=== PATIENT | male | born 1975 | race American Indian/Alaskan Native ===

== ENCOUNTER 2020-08-05 22:17 | Inpatient (IN) | payer OTHER ==
[2020-08-05] MEDS ORDERED: SODIUM CHLORIDE 0.9% 1000 ML 1,000 ML IV ONE ×2 (22:24→22:25)
[2020-08-05] MEDS ORDERED: ASPIRIN 325 MG TAB PO ONE (22:24)
[2020-08-05] MEDS ORDERED: AZITHROMYCIN 500 MG in SODIUM CHLORIDE 0.9% 250ML 250 ML IV ONE (22:25)
[2020-08-05] MEDS ORDERED: dexAMETHasone 4 MG/ML VIAL IV ONE (22:25)
[2020-08-05] MEDS ORDERED: cefTRIAXone/NS 2 GM/100 ML 2 GM/100 ML BAG IV ONE (22:25)
--- NOTE | 2020-08-05 22:29 | Emergency Department Report ---
ED Chest Pain HPI - General Chief Complaint: Chest Pain Stated Complaint: DIFFICULTY IN BREATHING PUI?: Yes Time Seen by Provider: 08/05/20 22:22 Source: patient, EMS Mode of arrival: Stretcher Limitations: No Limitations - History of Present Illness Initial Comments: Patient is a 45-year-old male that presents emergency room with complaints of chest pain and shortness of breath. Patient states he was diagnosed with Covid 2 days ago. Patient states his chest pain or shortness of breath started 2 days ago and is worsening. Patient also complains of fever, cough, fatigue. Patient states his chest pain is a 6 out of 10. Patient states his chest pain and shortness of breath are worse with deep breath, exertion and movement. Patient states that his chest pain or shortness of breath are better with rest. Patient states that his fever responds well to Tylenol. Patient brought in by EMS. Report received from EMS. EMS states the patient was 90% placed on a nonrebreather and is 99%. MD Complaint: chest pain -: Sudden - Related Data Home Medications Medication Instructions Recorded Confirmed Last Taken metFORMIN [Glucophage] 500 mg PO QDAY 08/06/20 08/06/20 1 Day Ago ~08/05/20 Allergies Allergy/AdvReac Type Severity Reaction Status Date / Time bismuth subsalicylate Allergy Headache Verified 08/06/20 03:00 [From Pepto-Bismol] Heart Score - HEART Score History: Slightly suspicious EKG: Normal Age: < 45 Risk factors: No known risk factors Troponin: < normal limit HEART Score: 0 ED Review of Systems ROS: Stated complaint: DIFFICULTY IN BREATHING Other details as noted in HPI Constitutional: chills, fever, weakness Eyes: denies: eye pain, eye discharge, vision change ENT: denies: ear pain, throat pain Respiratory: cough, shortness of breath. denies: wheezing Cardiovascular: chest pain. denies: palpitations Endocrine: no symptoms reported Gastrointestinal: denies: abdominal pain, nausea, diarrhea Genitourinary: denies: urgency, dysuria Musculoskeletal: denies: back pain, joint swelling, arthralgia Skin: denies: rash, lesions Neurological: denies: headache, weakness, paresthesias Psychiatric: denies: anxiety, depression Hematological/Lymphatic: denies: easy bleeding, easy bruising ED Past Medical Hx - Past Medical History Previous Medical History?: No - Surgical History Past Surgical History?: No - Family History Family history: no significant - Social History Smoking Status: Never Smoker Substance Use Type: None - Medications Home Medications: Home Medications Medication Instructions Recorded Confirmed Last Taken Type metFORMIN [Glucophage] 500 mg PO QDAY 08/06/20 08/06/20 1 Day Ago History ~08/05/20 ED Physical Exam - General General appearance: alert, in no apparent distress - Head Head exam: Present: atraumatic, normocephalic - Eye Eye exam: Present: normal appearance - ENT ENT exam: Present: mucous membranes moist - Neck Neck exam: Present: normal inspection - Respiratory Respiratory exam: Present: normal lung sounds bilaterally. Absent: respiratory distress - Cardiovascular Cardiovascular Exam: Present: regular rate, normal rhythm. Absent: systolic murmur, diastolic murmur, rubs, gallop - GI/Abdominal GI/Abdominal exam: Present: soft, normal bowel sounds - Rectal Rectal exam: Present: deferred - Extremities Exam Extremities exam: Present: normal inspection - Back Exam Back exam: Present: normal inspection - Neurological Exam Neurological exam: Present: alert, oriented X3 - Psychiatric Psychiatric exam: Present: normal affect, normal mood - Skin Skin exam: Present: warm, dry, intact, normal color. Absent: rash ED Course Vital Signs 08/05/20 08/05/20 08/05/20 22:28 22:30 22:45 Temperature 99.0 F Pulse Rate 117 H 117 H 112 H Respiratory 50 H 24 31 H Rate Blood Pressure 152/78 129/68 Blood Pressure [Right] O2 Sat by Pulse 91 100 100 Oximetry 08/05/20 08/05/20 08/05/20 23:00 23:15 23:30 Temperature Pulse Rate 110 H 108 H 107 H Respiratory 29 H 29 H 37 H Rate Blood Pressure 129/68 124/65 124/65 Blood Pressure [Right] O2 Sat by Pulse 97 99 98 Oximetry 08/05/20 08/05/20 08/06/20 23:33 23:45 00:00 Temperature Pulse Rate 109 H 106 H 108 H Respiratory 31 H 39 H 38 H Rate Blood Pressure 139/67 139/67 Blood Pressure 132/73 [Right] O2 Sat by Pulse 98 98 99 Oximetry 08/06/20 08/06/20 08/06/20 00:16 00:30 00:46 Temperature Pulse Rate 109 H 105 H 111 H Respiratory 32 H 27 H 32 H Rate Blood Pressure 139/67 139/67 139/67 Blood Pressure [Right] O2 Sat by Pulse 98 99 97 Oximetry 08/06/20 08/06/20 08/06/20 01:00 01:16 01:30 Temperature Pulse Rate 107 H 105 H 102 H Respiratory 38 H 31 H 35 H Rate Blood Pressure 139/67 139/67 139/67 Blood Pressure [Right] O2 Sat by Pulse 97 94 95 Oximetry 08/06/20 08/06/20 08/06/20 01:46 02:00 02:16 Temperature Pulse Rate 102 H 103 H 107 H Respiratory 31 H 33 H 33 H Rate Blood Pressure 139/67 139/67 139/67 Blood Pressure [Right] O2 Sat by Pulse 96 97 94 Oximetry 08/06/20 08/06/20 08/06/20 03:00 03:16 03:30 Temperature Pulse Rate 102 H 101 H 103 H Respiratory 34 H 35 H 33 H Rate Blood Pressure Blood Pressure [Right] O2 Sat by Pulse 96 95 95 Oximetry - Reevaluation(s) Reevaluation #1: Initial evaluation done. Patient is on a nonrebreather. Patient will be converted to a nasal cannula. 08/05/20 22:22 Reevaluation #2: Patient's oxygen saturation is stable. Patient is on 5 L via nasal cannula. Patient has received fluids and antibiotics. 08/05/20 2301 Reevaluation #3: I discussed all results with patient. I discussed plan of care with patient. Patient agrees with plan of care and admission. Patient to be admitted to the hospitalist service. 08/06/20 02:13 - Consultations Consultation #1: Hospitalist consulted for admission. Hospitalist to admit patient. 08/06/20 02:13 Consultation #2: Infectious disease consult placed. 08/06/20 02:13 PATRIZIA score - Patrizia Score Age > 65: (0) No Aspirin use within the Past 7 Days: (0) No 3 or more CAD Risk Factors: (0) No 2 or more Angina events in past 24 hrs: (0) No Known CAD with more than 50% Stenosis: (0) No Elevated Cardiac Markers: (0) No ST Deviation Greater than 0.5mm: (0) No PATRIZIA Score: 0 ED Medical Decision Making - Lab Data Result diagrams: 08/05/20 23:15 08/06/20 00:36 - EKG Data -: EKG Interpreted by Me EKG shows normal: sinus rhythm, axis, intervals, QRS complexes, ST-T waves Rate: tachycardia - Radiology Data Radiology results: report reviewed, image reviewed interpreted by me: Chest x-ray: Bilateral pneumonia, no pneumothorax, no foreign body, no osseous findings, - Medical Decision Making Patient is a 45-year-old male that presents emergency room with complaints of chest pain and shortness of breath. Patient was diagnosed with Covid 2 to 3 days ago. Patient symptoms have been worsening. Patient brought in by EMS and found to have hypoxia. Patient placed on oxygen. Patient required oxygen the entire time in ER. Patient's clinical findings with respiratory failure. Patient had labs were done which were essentially unremarkable except for elevated Covid markers. Patient given antibiotics and fluids early and the ER stay. Patient also given Decadron. Infectious disease consulted. Patient admitted to the hospitalist service for further evaluation and treatment. Patient also admitted to rule out ACS. - Differential Diagnosis Covid, pneumonia, shortness of breath, hypoxia, respiratory failure Critical Care Time: Yes Critical care time in (mins) excluding proc time.: 35 Critical care attestation.: If time is entered above; I have spent that time in minutes in the direct care of this critically ill patient, excluding procedure time. Critical Care Time: 35 minutes ED Disposition Clinical Impression: COVID-19, SOB (shortness of breath), Lactic acid acidosis Chest pain Qualifiers: Chest pain type: unspecified Qualified Code(s): R07.9 - Chest pain, unspecified Respiratory failure Qualifiers: Chronicity: acute Respiratory failure complication: hypoxia Qualified Code(s): J96.01 - Acute respiratory failure with hypoxia Pneumonia Qualifiers: Pneumonia type: due to unspecified organism Laterality: bilateral Lung location: unspecified part of lung Qualified Code(s): J18.9 - Pneumonia, unspecified organism Fever Qualifiers: Fever type: unspecified Qualified Code(s): R50.9 - Fever, unspecified Sepsis Qualifiers: Sepsis type: sepsis due to unspecified organism Sepsis acute organ dysfunction status: without acute organ dysfunction Qualified Code(s): A41.9 - Sepsis, unspecified organism Disposition: OP ADMIT IP TO THIS HOSP Is pt being admited?: Yes Does the pt Need Aspirin: No Condition: Critical Time of Disposition: 02:13
--- NOTE | 2020-08-05 23:05 | XRay Report ---
CHEST 1 VIEW INDICATION: sob. COMPARISON: None FINDINGS: SUPPORT DEVICES: None. HEART: Within normal limits. LUNGS/PLEURA: Patchy bibasilar airspace disease with no appreciable effusion. ADDITIONAL FINDINGS: None. IMPRESSION: 1. Pulmonary findings as above. Signer Name: Anthony Gordon MD Signed: 08/05/2020 11:00 PM Workstation Name: [id number]
[2020-08-06 00:19] LABS: Alanine Aminotransferase 73 units/L (7-56); Albumin 4.3 g/dL (3.9-5); BUN/Creatinine Ratio 13; Blood Urea Nitrogen 15 mg/dL (9-20); Calcium 8.9 mg/dL (8.4-10.2); Hemolysis Index 52
[2020-08-06 00:23] LABS: Hematocrit 41.6 % (35.5-45.6); Hemoglobin 13.6 gm/dl (11.8-15.2); Mean Corpuscular HGB Conc 33 % (32-34); Mean Corpuscular Volume 87 fl (84-94); Platelet Count 291 K/mm3 (140-440); Red Blood Count 4.78 M/mm3 (3.65-5.03); Red Cell Distribution Width 14.9 % (13.2-15.2)
[2020-08-06] MEDS ORDERED: SODIUM CHLORIDE 0.9% 1000 ML 1,000 ML IV ONE (00:39)
[2020-08-06] MEDS ORDERED: ONDANSETRON 4 MG/2 ML INJ IV PRN (03:10)
[2020-08-06] MEDS ORDERED: MORPHINE 2 MG/1 ML INJ IV PRN (03:12)
[2020-08-06] MEDS ORDERED: SODIUM CHLORIDE 0.9% 1000 ML 1,000 ML IV SCH (03:15)
[2020-08-06 03:50] LABS: C-Reactive Protein 32.8 mg/dL (0.00-1.30)
[2020-08-06 04:34] LABS: Band Neutrophils # (Manual) 0.5 K/mm3; Basophils % (Manual) 0 % (0.0-1.8); Eosinophils % (Manual) 0 % (0.0-4.3); Total Cells Counted 100
[2020-08-06 04:35] LABS: Platelet Estimate Consistent w Auto
[2020-08-06] MEDS: NITROGLYCERIN 2% OINT 1 GM TP SCH ×4 (06:35→17:12)
--- NOTE | 2020-08-06 07:21 | History and Physical Report ---
History of Present Illness Date of examination: 08/06/20 Date of admission: 08/06/20 02:50 Chief complaint: CHEST PAIN FEVER, COUGH, History of present illness: 45 year old male with history of pressure like chest pain that started 2 days prior to presentation and was associated with cough, fever and shortness of breath. Chest pain is worse with exertion and better with rest. patient tested positive to COVID -19 2 days ago Past History Past Medical History: diabetes, other (BACK PAIN) Past Surgical History: No surgical history Social history: no significant social history Family history: no significant family history Medications and Allergies Allergies Allergy/AdvReac Type Severity Reaction Status Date / Time bismuth subsalicylate Allergy Headache Verified 08/06/20 03:00 [From Pepto-Bismol] Home Medications Medication Instructions Recorded Confirmed Last Taken Type metFORMIN [Glucophage] 500 mg PO QDAY 08/06/20 08/06/20 1 Day Ago History ~08/05/20 Active Meds: Active Medications Acetaminophen (Tylenol) 650 mg PO Q4H PRN PRN Reason: Fever >101 Aspirin (Aspirin) 325 mg PO QDAY [facility] Dexamethasone (Decadron) 6 mg IV DAILY [facility] Heparin Sodium (Porcine) (Heparin) 5,000 unit SUB-Q Q12HR [facility] Azithromycin 500 mg/ Sodium (Chloride) 250 mls @ 250 mls/hr IV Q24HR [facility]; Protocol Ceftriaxone Sodium (Rocephin/Ns 2 Gm/100 Ml) 2 gm in 100 mls @ 200 mls/hr IV Q24HR [facility]; Protocol Sodium Chloride (Nacl 0.9% 1000 Ml) 1,000 mls @ 125 mls/hr IV DIRECT [facility] Morphine Sulfate (Morphine) 2 mg IV Q4H PRN PRN Reason: Pain, Moderate (4-6) Nitroglycerin (Nitro-Bid 2%) 0.5 inch TP QIDNTG [facility]; Protocol Last Admin: 08/06/20 06:35 Dose: 0.5 inch Documented by: Ondansetron HCl (Zofran) 4 mg IV Q8H PRN PRN Reason: Nausea And Vomiting Review of Systems Constitutional: fever, weakness, no weight loss, no weight gain, no chills, no sweats, no night sweats, no fatigue, no malaise, no lethargy, no daytime sleepiness Eyes: bilateral: other (NO BILATERAL EYE SYMPTOM) Ears, nose, mouth and throat: no ear pain Cardiovascular: chest pain, shortness of breath, no palpitations, no rapid/irregular heart beat, no syncope Respiratory: cough, shortness of breath, no hemoptysis, no congestion Gastrointestinal: no abdominal pain, no nausea, no vomiting, no diarrhea, no constipation, no change in bowel habits, no hematemesis, no hematochezia, no loss of appetite, no early satiety, no heartburn Genitourinary Male: no hematuria, no flank pain, no discharge, no urinary frequency, no urinary hesitancy, no nocturia, no incontinence, no impotence Rectal: no pain Musculoskeletal: no neck stiffness, no neck pain, no shooting arm pain, no arm numbness/tingling, no low back pain, no shooting leg pain, no leg numbness/tingling, no muscle weakness, no muscle cramps Integumentary: rash Neurological: weakness, no parathesias, no numbness, no tingling, no seizures, no syncope, no tremors, no vertigo, no headaches Psychiatric: no anxiety, no insomnia, no hypersomnia, no change in appetite, no depression Endocrine: no polyphagia, no polydipsia, no polyuria, no nocturia, no excessive sweating, no flushing Exam - Constitutional Vitals: Temp Pulse Resp BP Pulse Ox 99.0 F 106 H 33 H 140/81 95 08/05/20 22:30 08/06/20 06:35 08/06/20 03:30 08/06/20 06:35 08/06/20 03:30 General appearance: Present: mild distress - EENT Eyes: Present: PERRL ENT: hearing intact, clear oral mucosa, dentition normal - Neck Neck: Present: supple, normal ROM - Respiratory Respiratory effort: normal - Cardiovascular Rhythm: irregularly irregular Heart Sounds: Present: S1 & S2. Absent: gallop, systolic murmur, diastolic murmur - Extremities Extremities: no ischemia, No edema Peripheral Pulses: within normal limits - Abdominal General gastrointestinal: Present: soft, non-tender, non-distended. Absent: tender, distended, rigid, mass Male genitourinary: Present: deferred - Rectal Rectal Exam: deferred - Integumentary Integumentary: Present: clear, warm, dry - Musculoskeletal Musculoskeletal: strength equal bilaterally - Psychiatric Psychiatric: appropriate mood/affect HEART Score - HEART Score EKG: Normal Age: < 45 Risk factors: No known risk factors Troponin: Troponin T < 0.010 ng/mL (0.00-0.029) 08/06/20 05:49 Troponin: < normal limit - Critical Actions Critical Actions: 0-3 pts:0.9-1.7%risk of adverse cardiac event.Candidate for discharge Results - Labs CBC & Chem 7: 08/05/20 23:15 08/06/20 00:36 Labs: Laboratory Last Values WBC 13.6 K/mm3 (4.5-11.0) H 08/05/20 23:15 RBC 4.78 M/mm3 (3.65-5.03) 08/05/20 23:15 Hgb 13.6 gm/dl (11.8-15.2) 08/05/20 23:15 Hct 41.6 % (35.5-45.6) 08/05/20 23:15 MCV 87 fl (84-94) 08/05/20 23:15 MCH 29 pg (28-32) 08/05/20 23:15 MCHC 33 % (32-34) 08/05/20 23:15 RDW 14.9 % (13.2-15.2) 08/05/20 23:15 Plt Count 291 K/mm3 (140-440) 08/05/20 23:15 Add Manual Diff Complete 08/05/20 23:15 Total Counted 100 08/05/20 23:15 Seg Neutrophils % Sr. Payroll Manager 08/05/20 23:15 Seg Neuts % (Manual) 90.0 % (40.0-70.0) H 08/05/20 23:15 Band Neutrophils % 4.0 % 08/05/20 23:15 Lymphocytes % (Manual) 5.0 % (13.4-35.0) L 08/05/20 23:15 Reactive Lymphs % (Man) 0 % 08/05/20 23:15 Monocytes % (Manual) 1.0 % (0.0-7.3) 08/05/20 23:15 Eosinophils % (Manual) 0 % (0.0-4.3) 08/05/20 23:15 Basophils % (Manual) 0 % (0.0-1.8) 08/05/20 23:15 Metamyelocytes % 0 % 08/05/20 23:15 Myelocytes % 0 % 08/05/20 23:15 Promyelocytes % 0 % 08/05/20 23:15 Blast Cells % 0 % 08/05/20 23:15 Nucleated RBC % Not Reportable 08/05/20 23:15 Seg Neutrophils # Man 12.2 K/mm3 (1.8-7.7) H 08/05/20 23:15 Band Neutrophils # 0.5 K/mm3 08/05/20 23:15 Lymphocytes # (Manual) 0.7 K/mm3 (1.2-5.4) L 08/05/20 23:15 Abs React Lymphs (Man) 0.0 K/mm3 08/05/20 23:15 Monocytes # (Manual) 0.1 K/mm3 (0.0-0.8) 08/05/20 23:15 Eosinophils # (Manual) 0.0 K/mm3 (0.0-0.4) 08/05/20 23:15 Basophils # (Manual) 0.0 K/mm3 (0.0-0.1) 08/05/20 23:15 Metamyelocytes # 0.0 K/mm3 08/05/20 23:15 Myelocytes # 0.0 K/mm3 08/05/20 23:15 Promyelocytes # 0.0 K/mm3 08/05/20 23:15 Blast Cells # 0.0 K/mm3 08/05/20 23:15 WBC Morphology Not Reportable 08/05/20 23:15 Hypersegmented Neuts Not Reportable 08/05/20 23:15 Hyposegmented Neuts Not Reportable 08/05/20 23:15 Hypogranular Neuts Not Reportable 08/05/20 23:15 Smudge Cells Not Reportable 08/05/20 23:15 Toxic Granulation Not Reportable 08/05/20 23:15 Toxic Vacuolation Not Reportable 08/05/20 23:15 Dohle Bodies Not Reportable 08/05/20 23:15 Pelger-Huet Anomaly Not Reportable 08/05/20 23:15 Tom Rods Not Reportable 08/05/20 23:15 Platelet Estimate Consistent w auto 08/05/20 23:15 Clumped Platelets Not Reportable 08/05/20 23:15 Plt Clumps, EDTA Not Reportable 08/05/20 23:15 Large Platelets Not Reportable 08/05/20 23:15 Giant Platelets Not Reportable 08/05/20 23:15 Platelet Satelliting Not Reportable 08/05/20 23:15 Plt Morphology Comment Not Reportable 08/05/20 23:15 RBC Morphology Not Reportable 08/05/20 23:15 Dimorphic RBCs Not Reportable 08/05/20 23:15 Polychromasia Not Reportable 08/05/20 23:15 Hypochromasia Not Reportable 08/05/20 23:15 Poikilocytosis Not Reportable 08/05/20 23:15 Anisocytosis Not Reportable 08/05/20 23:15 Microcytosis Not Reportable 08/05/20 23:15 Macrocytosis Not Reportable 08/05/20 23:15 Spherocytes Not Reportable 08/05/20 23:15 Pappenheimer Bodies Not Reportable 08/05/20 23:15 Sickle Cells Not Reportable 08/05/20 23:15 Target Cells Not Reportable 08/05/20 23:15 Tear Drop Cells Not Reportable 08/05/20 23:15 Ovalocytes Not Reportable 08/05/20 23:15 Helmet Cells Not Reportable 08/05/20 23:15 Lopez-Gum[place] Bodies Not Reportable 08/05/20 23:15 [place] Rings Not Reportable 08/05/20 23:15 Lamar Cells Not Reportable 08/05/20 23:15 Bite Cells Not Reportable 08/05/20 23:15 Crenated Cell Not Reportable 08/05/20 23:15 Elliptocytes Not Reportable 08/05/20 23:15 Acanthocytes (Spur) Not Reportable 08/05/20 23:15 Rouleaux Not Reportable 08/05/20 23:15 Hemoglobin C Crystals Not Reportable 08/05/20 23:15 Schistocytes Not Reportable 08/05/20 23:15 Malaria parasites Not Reportable 08/05/20 23:15 Chris Bodies Not Reportable 08/05/20 23:15 Hem Pathologist Commnt No 08/05/20 23:15 D-Dimer 351.02 ng/mlDDU (0-234) H 08/06/20 00:36 Sodium 139 mmol/L (137-145) 08/05/20 23:15 Potassium 3.9 mmol/L (3.6-5.0) 08/05/20 23:15 Chloride 99.6 mmol/L (98-107) 08/05/20 23:15 Carbon Dioxide 21 mmol/L (22-30) L 08/05/20 23:15 Anion Gap 22 mmol/L 08/05/20 23:15 BUN 15 mg/dL (9-20) 08/05/20 23:15 Creatinine 1.2 mg/dL (0.8-1.3) 08/05/20 23:15 Estimated GFR > 60 ml/min 08/05/20 23:15 BUN/Creatinine Ratio 13 % 08/05/20 23:15 Glucose 143 mg/dL (75-100) H 08/06/20 00:36 Lactic Acid 1.30 mmol/L (0.7-2.0) 08/06/20 02:10 Calcium 8.9 mg/dL (8.4-10.2) 08/05/20 23:15 Ferritin 1012.0 ng/mL (30.0-300.0) H 08/06/20 00:36 Total Bilirubin 0.60 mg/dL (0.1-1.2) 08/05/20 23:15 AST 40 units/L (5-40) 08/05/20 23:15 ALT 73 units/L (7-56) H 08/05/20 23:15 Alkaline Phosphatase 91 units/L (35-129) 08/05/20 23:15 Lactate Dehydrogenase 176 units/L (91-180) 08/06/20 00:36 Troponin T < 0.010 ng/mL (0.00-0.029) 08/06/20 05:49 C-Reactive Protein 32.80 mg/dL (0.00-1.30) H 08/06/20 00:36 Total Protein 7.5 g/dL (6.3-8.2) 08/05/20 23:15 Albumin 4.3 g/dL (3.9-5) 08/05/20 23:15 Albumin/Globulin Ratio 1.3 % 08/05/20 23:15 Microbiology: Microbiology 08/05/20 22:55 Peripheral/Venous Blood Culture - Preliminary Culture in Progress 08/05/20 23:15 Peripheral/Venous Blood Culture - Preliminary Culture in Progress [place]/IV: Voiding Method Urinal IV Catheter Type [Left INT / Saline Lock Antecubital] Assessment and Plan - Patient Problems (1) COVID-19 Current Visit: Yes Status: Acute Plan to address problem: 1. CONTACT AND DROPLET ISOLATION 2. INFECTIOUS DISEASE CONSULT 3. I.V ZITHROMAX ANTIBIOTIC 4. I.V ROCEPHINE ANTIBIOTIC 5 . I.V DEXAMETHASONE ANTIBIOTIC (2) Chest pain Current Visit: Yes Status: Acute Qualifiers: Chest pain type: unspecified Qualified Code(s): R07.9 - Chest pain, unspecified Plan to address problem: 1. SERIAL CARDIAC ENZYME 2. CARDIOLOGY CONSULT 3. NITROPASTE 4. I.V MORPHINE 5. ASPIRIN PO 6.TYLENOL PO FOR HEADACHE 7. I.V ZOFRAN FOR NAUSEA AND VOMITING (3) Sepsis Current Visit: Yes Status: Acute Qualifiers: Sepsis type: sepsis due to unspecified organism Sepsis acute organ dysfunction status: without acute organ dysfunction Qualified Code(s): A41.9 - Sepsis, unspecified organism Plan to address problem: 1. I.V NORMAL SALINE MAINTENANCE FLUID 2. I.V VANCOMYCIN ANTIBIOTIC 3. I.V ZITHROMAX ANTIBIOTIC 4. I.V ROCEPHINE ANTIBIOTIC
[2020-08-06 08:05] LABS: Creatine Kinase MB < 1.0 ng/mL (0.0-4.0)
--- NOTE | 2020-08-06 09:12 | Consultation ---
<OLIVE FRANK - Last Filed: 08/06/20 11:49> History of Present Illness Consult date: 08/06/20 Consult reason: chest pain History of present illness: This is a 45-year old M who presents with shortness of breath, cough and fever, admitted with COVID-19 infection. Laboratory studies shows a WBC of 13,600. COVID test result is pending. He was reported with atypical, musculoskeletal chest pain following episodes of cough and position changes. Cardiac isoenzymes are normal. 12-lead EKG shows a normal sinus rhythm. A cardiac consultation has been requested for evaluation of chest pain. Past History Past Medical History: diabetes, other (BACK PAIN) Past Surgical History: No surgical history Social history: no significant social history Family history: no significant family history Medications and Allergies Allergies Allergy/AdvReac Type Severity Reaction Status Date / Time bismuth subsalicylate Allergy Headache Verified 08/06/20 03:00 [From Pepto-Bismol] Home Medications Medication Instructions Recorded Confirmed Last Taken Type metFORMIN [Glucophage] 500 mg PO QDAY 08/06/20 08/06/20 1 Day Ago History ~08/05/20 Active Meds: Active Medications Acetaminophen (Tylenol) 650 mg PO Q4H PRN PRN Reason: Fever >101 Aspirin (Aspirin) 325 mg PO QDAY [facility] Azithromycin (Zithromax) 500 mg PO QDAY [facility] Stop: 08/09/20 10:01 Dexamethasone (Decadron) 6 mg PO DAILY [facility] Stop: 08/14/20 10:01 Heparin Sodium (Porcine) (Heparin) 5,000 unit SUB-Q Q12HR [facility] Azithromycin 500 mg/ Sodium (Chloride) 250 mls @ 250 mls/hr IV Q24HR [facility]; Protocol Stop: 08/06/20 14:00 Ceftriaxone Sodium (Rocephin/Ns 2 Gm/100 Ml) 2 gm in 100 mls @ 200 mls/hr IV Q24HR [facility]; Protocol Sodium Chloride (Nacl 0.9% 1000 Ml) 1,000 mls @ 125 mls/hr IV DIRECT [facility] Last Admin: 08/06/20 07:41 Dose: 125 mls/hr Documented by: Morphine Sulfate (Morphine) 2 mg IV Q4H PRN PRN Reason: Pain, Moderate (4-6) Nitroglycerin (Nitro-Bid 2%) 0.5 inch TP QIDNTG [facility]; Protocol Last Admin: 08/06/20 06:35 Dose: 0.5 inch Documented by: Ondansetron HCl (Zofran) 4 mg IV Q8H PRN PRN Reason: Nausea And Vomiting Review of Systems Cardiovascular: chest pain, shortness of breath Physical Examination Vital Signs Pulse Resp Pulse Ox 117 H 50 H 91 08/05/20 22:28 08/05/20 22:28 08/05/20 22:28 Narrative exam: Deferred due to isolation protocol. Results 08/05/20 23:15 08/06/20 00:36 Cardiac Enzymes 08/05/20 08/06/20 08/06/20 Range/Units 23:15 00:36 05:49 AST 40 (5-40) units/L Lactate Dehydrogenase 176 (91-180) units/L CK-MB (CK-2) < 1.0 (0.0-4.0) ng/mL CBC 08/05/20 Range/Units 23:15 WBC 13.6 H (4.5-11.0) K/mm3 RBC 4.78 (3.65-5.03) M/mm3 Hgb 13.6 (11.8-15.2) gm/dl Hct 41.6 (35.5-45.6) % Plt Count 291 (140-440) K/mm3 Comprehensive Metabolic Panel 08/05/20 08/06/20 Range/Units 23:15 00:36 Sodium 139 (137-145) mmol/L Potassium 3.9 (3.6-5.0) mmol/L Chloride 99.6 (98-107) mmol/L Carbon Dioxide 21 L (22-30) mmol/L BUN 15 (9-20) mg/dL Creatinine 1.2 (0.8-1.3) mg/dL Glucose 145 H 143 H (75-100) mg/dL Calcium 8.9 (8.4-10.2) mg/dL AST 40 (5-40) units/L ALT 73 H (7-56) units/L Alkaline Phosphatase 91 (35-129) units/L Total Protein 7.5 (6.3-8.2) g/dL Albumin 4.3 (3.9-5) g/dL Assessment and Plan COVID 19 infection Musculoskeletal chest pain ECG is normal sinus rhythm Diabetes No cardiac workup is indicted. Recommend a trial of NSAIDS for musuloskeletal type chest pain. Will sign off. <KENNEDIALLIE Aguero - Last Filed: 08/09/20 09:05> History of Present Illness History of present illness: I SAW THIS PT & AGREE WITH THE Dx & Tx PLAN Medications and Allergies Active Meds: Active Medications Acetaminophen (Tylenol) 650 mg PO Q4H PRN PRN Reason: Fever >101 Last Admin: 08/07/20 02:12 Dose: 650 mg Documented by: Ascorbic Acid (Vitamin C) 1,000 mg PO BID [facility] Last Admin: 08/08/20 22:02 Dose: 1,000 mg Documented by: Aspirin (Aspirin) 325 mg PO QDAY [facility] Last Admin: 08/08/20 09:51 Dose: 325 mg Documented by: Cholecalciferol (Vitamin D3) 10,000 unit PO DAILY [facility] Last Admin: 08/08/20 09:52 Dose: 10,000 unit Documented by: Dexamethasone (Decadron) 6 mg IV Q24HR [facility] Stop: 08/14/20 10:01 Last Admin: 08/08/20 09:53 Dose: 6 mg Documented by: Enoxaparin Sodium (Enoxaparin) 100 mg SUB-Q Q12HR [facility]; Protocol Last Admin: 08/08/20 22:02 Dose: 100 mg Documented by: Furosemide (Lasix) 20 mg IV QDAY [facility] REMDESIVIR 100 mg/ Sodium (Chloride) 250 mls @ 500 mls/hr IV Q24HR@2100 [facility] Stop: 08/10/20 21:29 Last Admin: 08/08/20 22:01 Dose: 500 mls/hr Documented by: Ceftriaxone Sodium (Rocephin/Ns 2 Gm/100 Ml) 2 gm in 100 mls @ 200 mls/hr IV Q24HR [facility]; Protocol Stop: 08/10/20 11:29 Last Admin: 08/08/20 09:50 Dose: 200 mls/hr Documented by: Insulin Glargine (Lantus) 10 units SUB-Q QHS [facility] Last Admin: 08/08/20 23:22 Dose: 10 units Documented by: Insulin Human Regular (Humulin R) 0 unit SUB-Q ACHS [facility]; Protocol Last Admin: 08/09/20 08:52 Dose: Not Given Documented by: Morphine Sulfate (Morphine) 2 mg IV Q4H PRN PRN Reason: Pain, Moderate (4-6) Nitroglycerin (Nitro-Bid 2%) 0.5 inch TP QIDNTG [facility]; Protocol Last Admin: 08/09/20 06:45 Dose: 0.5 inch Documented by: Ondansetron HCl (Zofran) 4 mg IV Q8H PRN PRN Reason: Nausea And Vomiting Sodium Chloride (Nacl 0.9%) 50 ml IV Q24HR@2100 [facility] Stop: 08/09/20 21:01 Last Admin: 08/08/20 23:34 Dose: Not Given Documented by: Zinc Sulfate (Zinc Sulfate) 220 mg PO BID [facility] Last Admin: 08/08/20 22:02 Dose: 220 mg Documented by: Physical Examination Vital Signs Pulse Resp Pulse Ox 117 H 50 H 91 08/05/20 22:28 08/05/20 22:28 08/05/20 22:28 Results 08/08/20 04:25 08/08/20 13:16 Cardiac Enzymes 08/08/20 08/08/20 Range/Units 13:16 13:24 AST 25 (5-40) units/L Lactate Dehydrogenase 301 H (91-180) units/L Comprehensive Metabolic Panel 08/08/20 Range/Units 13:16 Sodium 139 (137-145) mmol/L Potassium 4.0 (3.6-5.0) mmol/L Chloride 103.5 (98-107) mmol/L Carbon Dioxide 25 (22-30) mmol/L BUN 25 H (9-20) mg/dL Creatinine 0.9 (0.8-1.3) mg/dL Glucose 260 H (75-100) mg/dL Calcium 8.7 (8.4-10.2) mg/dL AST 25 (5-40) units/L ALT 40 (7-56) units/L Alkaline Phosphatase 67 (35-129) units/L Total Protein 7.1 (6.3-8.2) g/dL Albumin 3.2 L (3.9-5) g/dL
[2020-08-06] MEDS ORDERED: HEPARIN 5,000 UNIT/1 ML VIAL SUB-Q SCH (10:00)
[2020-08-06] MEDS ORDERED: DEXAMETHASONE 4 MG TAB PO SCH (10:00)
[2020-08-06] MEDS ORDERED: AZITHROMYCIN 500 MG in SODIUM CHLORIDE 0.9% 250ML 250 ML IV SCH (10:00)
[2020-08-06] MEDS ORDERED: cefTRIAXone/NS 2 GM/100 ML 2 GM/100 ML BAG IV SCH (10:00)
[2020-08-06] MEDS ORDERED: dexAMETHasone 4 MG/ML VIAL IV SCH (10:00)
[2020-08-06] MEDS: ASPIRIN 325 MG TAB PO SCH (10:31)
[2020-08-06 10:51] LABS: Bilirubin,Urine NEG (Negative); Blood,Urine MOD (Negative); Color,Urine Yellow (Yellow); Mucus,Urine 1+ /HPF; Urobilinogen,Urine < 2.0 mg/dL (<2.0)
[2020-08-06] MEDS: ACETAMINOPHEN 325 MG TAB PO PRN (12:45)
[2020-08-06 14:57] LABS: Creatine Kinase MB < 1.0 ng/mL (0.0-4.0)
--- NOTE | 2020-08-06 15:17 | Consultation ---
History of Present Illness - Reason for Consult Consult date: 08/06/20 - History of Present Illness 45-year-old man past medical history diabetes, obesity presented to the hospital complaining of chest pain. This began 2 days prior to admission he also associated this with cough, fever, shortness of breath. Of note patient tested positive for COVID-19 2 days prior to admission as well. Febrile to 102.8 with a white count of 13.6. Procalcitonin is elevated to 14.5, normal renal function. He was noted to be hypoxic to 81. Imaging personally reviewed: Chest x-ray: Patchy bibasilar airspace disease Review of Systems: Bold if positive, otherwise negative General: fevers, chills, rigors HEENT: visual disturbance, diplopia, eye pain Respiratory: cough, sputum, hemoptysis, shortness of breath Cardiovascular: chest pain, syncope Gastrointestinal: nausea, vomiting, diarrhea, abdominal pain Genitourinary: dysuria, hematuria, flank pain Musculoskeletal: neck pain, back pain, joint pain, edema Neurologic: headaches, seizures Hematologic: easy bruising or bleeding Endocrine: night sweats, acute weight loss Skin: rash, jaundice, redness Psychiatric: suicidal, homicidal ideation Past History Past Medical History: diabetes, other (BACK PAIN) Past Surgical History: No surgical history Social history: no significant social history Family history: no significant family history Medications and Allergies Allergies Allergy/AdvReac Type Severity Reaction Status Date / Time bismuth subsalicylate Allergy Headache Verified 08/06/20 03:00 [From Pepto-Bismol] Home Medications Medication Instructions Recorded Confirmed Last Taken Type metFORMIN [Glucophage] 500 mg PO QDAY 08/06/20 08/06/20 1 Day Ago History ~08/05/20 Active Meds: Active Medications Acetaminophen (Tylenol) 650 mg PO Q4H PRN PRN Reason: Fever >101 Last Admin: 08/06/20 12:45 Dose: 650 mg Documented by: Aspirin (Aspirin) 325 mg PO QDAY [facility] Last Admin: 08/06/20 10:31 Dose: 325 mg Documented by: Azithromycin (Zithromax) 500 mg PO QDAY [facility] Stop: 08/09/20 10:01 Dexamethasone (Decadron) 6 mg PO DAILY [facility] Stop: 08/14/20 10:01 Last Admin: 12/03/20 10:31 Dose: 6 mg Documented by: Heparin Sodium (Porcine) (Heparin) 5,000 unit SUB-Q Q12HR [facility] Last Admin: 08/06/20 10:32 Dose: 5,000 unit Documented by: Ceftriaxone Sodium (Rocephin/Ns 2 Gm/100 Ml) 2 gm in 100 mls @ 200 mls/hr IV Q24HR [facility]; Protocol Last Admin: 08/06/20 10:32 Dose: 200 mls/hr Documented by: Sodium Chloride (Nacl 0.9% 1000 Ml) 1,000 mls @ 125 mls/hr IV DIRECT [facility] Last Admin: 08/06/20 07:41 Dose: 125 mls/hr Documented by: Morphine Sulfate (Morphine) 2 mg IV Q4H PRN PRN Reason: Pain, Moderate (4-6) Nitroglycerin (Nitro-Bid 2%) 0.5 inch TP QIDNTG [facility]; Protocol Last Admin: 08/06/20 14:33 Dose: 0.5 inch Documented by: Ondansetron HCl (Zofran) 4 mg IV Q8H PRN PRN Reason: Nausea And Vomiting Physical Examination - Physical Exam Narrative exam: Physical exam deferred due to PPE conservation strategy. Please refer to primary team's note. - Constitutional Vitals: Vital Signs Temp Pulse Resp BP Pulse Ox 102.8 F H 115 H 22 117/54 95 08/06/20 12:04 08/06/20 12:04 08/06/20 12:04 08/06/20 12:04 08/06/20 12:04 Temperature -Last 24 Hours Temperature 102.8 F Temperature 99.1 F Temperature 99.0 F Results - Labs CBC & Chem 7: 08/05/20 23:15 08/06/20 00:36 Labs: Abnormal lab results 08/05/20 08/05/20 08/05/20 Range/Units 23:15 23:15 23:15 WBC 13.6 H (4.5-11.0) K/mm3 Seg Neuts % (Manual) 90.0 H (40.0-70.0) % Lymphocytes % (Manual) 5.0 L (13.4-35.0) % Seg Neutrophils # Man 12.2 H (1.8-7.7) K/mm3 Lymphocytes # (Manual) 0.7 L (1.2-5.4) K/mm3 D-Dimer (0-234) ng/mlDDU Carbon Dioxide 21 L (22-30) mmol/L Glucose 145 H (75-100) mg/dL Lactic Acid 2.10 H* (0.7-2.0) mmol/L Ferritin (30.0-300.0) ng/mL ALT 73 H (7-56) units/L C-Reactive Protein (0.00-1.30) mg/dL 08/06/20 08/06/20 08/06/20 Range/Units 00:36 00:36 00:36 WBC (4.5-11.0) K/mm3 Seg Neuts % (Manual) (40.0-70.0) % Lymphocytes % (Manual) (13.4-35.0) % Seg Neutrophils # Man (1.8-7.7) K/mm3 Lymphocytes # (Manual) (1.2-5.4) K/mm3 D-Dimer 351.02 H (0-234) ng/mlDDU Carbon Dioxide (22-30) mmol/L Glucose 143 H (75-100) mg/dL Lactic Acid (0.7-2.0) mmol/L Ferritin 1012.0 H (30.0-300.0) ng/mL ALT (7-56) units/L C-Reactive Protein 32.80 H (0.00-1.30) mg/dL Assessment and Plan Cultures: Blood culture pending A/P: 45-year-old man past medical history diabetes, obesity admitted with COVID- 19 pneumonia. #Severe COVID-19 pneumonia: Patient presented with 2 days of symptoms, chest x- ray with diffuse bilateral infiltrates, admission O2 sats 81% on room air #Acute hypoxemic respiratory failure: Likely secondary to COVID-19 infection. #Diabetes: tight glycemic control for best outcomes. #Obesity: Associated with worse COVID-19 outcomes Recs: -Continue steroids for 10 days -Start Remdesivir 200 mg IV q day x 1 followed by 100 mg IV q day x 4 days. Monitor renal and hepatic function while receiving -Continue ceftriaxone 2 g every day and azithromycin 500 mg every day to complete 5 and 3 days effectively given elevated white count and procalcitonin. -Anticoagulation per hospital policy -Proning as able Thank you for the consult, we will continue to follow. Ryley Hopkins MD [facility] ([facility] O: [phone] F: [phone]
[2020-08-06] MEDS ORDERED: REMDESIVIR 200 MG in SODIUM CHLORIDE 0.9% 250ML 250 ML IV ONE (17:00)
[2020-08-06] MEDS ORDERED: REMDESIVIR 100 MG VIAL IV ONE (17:00)
--- NOTE | 2020-08-06 17:26 | Event Note ---
Date: 08/06/20 patient seen and examined 45 year old male with history of DM who tested positive to COVID -19 2 days ago presented with pressure like chest pain associated with cough, fever and shortness of breath. Chest pain is worse with exertion and better with rest. he has been placed on COVID 19 protocol, ID consulted, started on remdesivir and iv dexamethasone. Now on 4L o2, will cont current mx, follow Id recommendation.
[2020-08-06] MEDS: SODIUM CHLORIDE 0.9% 50 ML IVPB IV SCH (19:14)
[2020-08-06] MEDS ORDERED: FUROSEMIDE 40 MG/4 ML INJ IV ONE (22:00)
[2020-08-06] MEDS: ENOXAPARIN 100 MG/1 ML INJ SUB-Q SCH (22:44)
[2020-08-06] MEDS: CHOLECALCIFEROL (VIT D3) 5,000 UNIT TAB PO SCH (23:00)
[2020-08-06] MEDS: INSULIN REGULAR, HUMAN 100 UNIT/ML 3ML VIAL SUB-Q SCH (23:00)
[2020-08-07] MEDS: ACETAMINOPHEN 325 MG TAB PO PRN (02:12)
[2020-08-07] MEDS: NITROGLYCERIN 2% OINT 1 GM TP SCH ×4 (08:11→17:48)
[2020-08-07] MEDS: ZINC SULFATE 220 MG CAP PO SCH ×2 (09:47→21:19)
[2020-08-07] MEDS: CHOLECALCIFEROL (VIT D3) 5,000 UNIT TAB PO SCH (09:47)
[2020-08-07] MEDS: ASPIRIN 325 MG TAB PO SCH (09:47)
[2020-08-07] MEDS: ENOXAPARIN 100 MG/1 ML INJ SUB-Q SCH ×2 (09:48→21:21)
[2020-08-07] MEDS: ASCORBIC ACID 500 MG TAB PO SCH ×2 (09:48→21:18)
[2020-08-07] MEDS ORDERED: AZITHROMYCIN 250 MG TAB PO SCH (10:00)
[2020-08-07] MEDS ORDERED: dexAMETHasone 4 MG/ML VIAL IV SCH (10:00)
[2020-08-07 10:01] LABS: BUN/Creatinine Ratio 19; Blood Urea Nitrogen 19 mg/dL (9-20); Calcium 8.7 mg/dL (8.4-10.2); Hemolysis Index 6
[2020-08-07] MEDS: INSULIN REGULAR, HUMAN 100 UNIT/ML 3ML VIAL SUB-Q SCH ×4 (10:28→21:20)
--- NOTE | 2020-08-07 11:21 | Progress Note ---
Assessment and Plan Cultures: Blood culture pending A/P: 45-year-old man past medical history diabetes, obesity admitted with COVID- 19 pneumonia. #Severe COVID-19 pneumonia: Patient presented with 2 days of symptoms, chest x- ray with diffuse bilateral infiltrates, admission O2 sats 81% on room air #Acute hypoxemic respiratory failure: Likely secondary to COVID-19 infection. Currently on high flow nasal cannula. #Diabetes: tight glycemic control for best outcomes. #Obesity: Associated with worse COVID-19 outcomes Recs: -Continue steroids for 10 days -Start Remdesivir 200 mg IV q day x 1 followed by 100 mg IV q day x 4 days. Monitor renal and hepatic function while receiving. D2 of 5 -Continue ceftriaxone 2 g every day and azithromycin 500 mg every day to complete 5 and 3 days effectively given elevated white count and procalcitonin. -Anticoagulation per hospital policy -Proning as able -Follow COVID-19 antibody to see if candidate for CCP. -Repeat CBC and procalcitonin in morning. Thank you for the consult, we will continue to follow. Ryley Hopkins MD [facility] ([facility] O: [phone] F: [phone] Subjective Date of service: 08/07/20 Interval history: Febrile to 101.5, no acute changes. Currently on high flow nasal cannula 40/65 %. Objective - Exam Narrative Exam: Physical exam deferred due to PPE conservation strategy. Please refer to primary team's note. - Constitutional Vitals: Vital Signs Temp Pulse Resp BP Pulse Ox 98.1 F 91 H 18 128/90 96 08/07/20 05:57 08/07/20 05:57 08/07/20 05:57 08/07/20 09:48 08/07/20 05:57 Temperature -Last 24 Hours Temperature 98.1 F Temperature 97.9 F Temperature 101.5 F Temperature 97.7 F Temperature 100.8 F Temperature 100.7 F Temperature 102.8 F - Labs CBC & Chem 7: 08/05/20 23:15 08/07/20 08:54 Labs: Abnormal lab results 08/06/20 08/07/20 08/07/20 Range/Units 22:43 08:54 10:09 Glucose 210 H (75-100) mg/dL POC Glucose 258 H 176 H (70-105) mg/dL 08/07/20 Range/Units 11:08 Glucose (75-100) mg/dL POC Glucose 171 H (70-105) mg/dL
[2020-08-07] MEDS: cefTRIAXone/NS 2 GM/100 ML 2 GM/100 ML BAG IV SCH (12:41)
[2020-08-07] MEDS: AZITHROMYCIN 500 MG in SODIUM CHLORIDE 0.9% 250ML 250 ML IV SCH (13:32)
[2020-08-07] MEDS ORDERED: FUROSEMIDE 40 MG/4 ML INJ IV SCH ×2 (18:00)
[2020-08-07] MEDS: SODIUM CHLORIDE 0.9% 50 ML IVPB IV SCH (21:20)
[2020-08-07] MEDS: REMDESIVIR 100 MG in SODIUM CHLORIDE 0.9% 250ML 250 ML IV SCH (21:21)
--- NOTE | 2020-08-07 22:38 | Progress Note ---
Assessment and Plan Severe COVID-19 pneumonia - chest x-ray with diffuse bilateral infiltrates - ID consulted, started on dexamethasone and remdesivir -Continue ceftriaxone 2 g every day and azithromycin 500 mg every day to complete 5 and 3 days effectively given elevated white count and procalcitonin. - follow daily inflammatory markers, supplemental O2 to keep >94% Acute hypoxemic respiratory failure - Likely secondary to COVID-19 infection. - Currently on high flow 25L nasal cannula. - pulmonary consulted, cont iv steroid - wean off O2 as tolerated DM type 2 - consistent carb diet, SSI Obesity, dietary recommendation when clinically stable DVT Px, per COVID 19 protocol Brief History: 45 year old male with history of DM who tested positive to COVID -19 2 days ago presented with pressure like chest pain associated with cough, fever and shortness of breath. Chest pain is worse with exertion and better with rest. he has been placed on COVID 19 protocol, ID consulted, started on remdesivir and iv dexamethasone. Now on high flow o2, will cont current mx, follow Id recommendation. 08/05: cont dexamethasone and remdesivir. ordered lasix iv for possible pulmonary edema. repeat BMP tomorrow. Subjective Date of service: 08/07/20 Interval history: Patient seen and examined Now on 75% high flow O2 tolerating diet, c/o cough no chest pain Objective - Exam Narrative Exam: General appearance: Present: mild distress - EENT Eyes: Present: PERRL ENT: hearing intact, clear oral mucosa, dentition normal - Neck Neck: Present: supple, normal ROM - Respiratory Respiratory effort: normal - Cardiovascular Rhythm: irregularly irregular Heart Sounds: Present: S1 & S2. Absent: gallop, systolic murmur, diastolic murmur - Extremities Extremities: no ischemia, No edema Peripheral Pulses: within normal limits - Abdominal General gastrointestinal: Present: soft, non-tender, non-distended. Absent: tender, distended, rigid, mass Male genitourinary: Present: deferred - Rectal Rectal Exam: deferred - Integumentary Integumentary: Present: clear, warm, dry - Musculoskeletal Musculoskeletal: strength equal bilaterally - Psychiatric Psychiatric: appropriate mood/affect - Constitutional Vitals: Vital Signs - 12hr 08/07/20 08/07/20 08/07/20 11:10 16:07 16:13 Temperature 98.5 F 98.5 F Pulse Rate 89 99 H Respiratory 24 24 Rate Blood Pressure 142/90 128/78 O2 Sat by Pulse 95 91 92 Oximetry 08/07/20 20:16 Temperature Pulse Rate Respiratory Rate Blood Pressure O2 Sat by Pulse 94 Oximetry - Labs CBC & Chem 7: 08/05/20 23:15 08/07/20 08:54 Labs: Abnormal lab results 08/06/20 08/07/20 08/07/20 Range/Units 22:43 08:54 08:54 Glucose 210 H (75-100) mg/dL POC Glucose 258 H (70-105) mg/dL SARS-CoV-2 IgG Ab Reactive A (NonReactive) 08/07/20 08/07/20 08/07/20 Range/Units 10:09 11:08 16:11 Glucose (75-100) mg/dL POC Glucose 176 H 171 H 267 H (70-105) mg/dL SARS-CoV-2 IgG Ab (NonReactive) 08/07/20 Range/Units 21:02 Glucose (75-100) mg/dL POC Glucose 272 H (70-105) mg/dL SARS-CoV-2 IgG Ab (NonReactive) HEART Score - HEART Score EKG: Normal Age: < 45 Risk factors: No known risk factors Troponin: Troponin T < 0.010 ng/mL (0.00-0.029) 08/06/20 14:08 Troponin: < normal limit - Critical Actions Critical Actions: 0-3 pts:0.9-1.7%risk of adverse cardiac event.Candidate for discharge
[2020-08-08 06:39] LABS: Hematocrit 35.9 % (35.5-45.6); Mean Corpuscular HGB Conc 33 % (32-34); Mean Corpuscular Volume 86 fl (84-94); Platelet Count 375 K/mm3 (140-440); Red Blood Count 4.18 M/mm3 (3.65-5.03); Red Cell Distribution Width 15.1 % (13.2-15.2)
[2020-08-08 07:03] LABS: BUN/Creatinine Ratio 25; Blood Urea Nitrogen 25 mg/dL (9-20); Calcium 8.7 mg/dL (8.4-10.2); Hemolysis Index 0
[2020-08-08] MEDS: NITROGLYCERIN 2% OINT 1 GM TP SCH ×4 (07:09→18:29)
--- NOTE | 2020-08-08 07:58 | Progress Note ---
Assessment and Plan Severe COVID-19 pneumonia - chest x-ray with diffuse bilateral infiltrates - ID consulted, started on dexamethasone and remdesivir -Continue ceftriaxone 2 g every day and azithromycin 500 mg every day to complete 5 and 3 days effectively given elevated white count and procalcitonin.will recheck procal level in am. Also iv lasix give for some vol overload - follow daily inflammatory markers, supplemental O2 to keep >94% wean O2 as tolerated Acute hypoxemic respiratory failure - secondary to covid PNA. - Currently on high flow 35L nasal cannula. had gone uo to 40 - pulmonary consulted, cont iv steroid - wean off O2 as tolerated DM type 2 - consistent carb diet, SSI uncontrolled will add lantus at 10 units QHS Obesity, dietary recommendation when clinically stable DVT Px, per COVID 19 protocol Subjective Date of service: 08/08/20 Principal diagnosis: COVID-19 pneumonia Interval history: Patient without any concerns. Spoke with his cousin who is a physician in [facility]. All questions and concerns answered to their satisfaction. Patient remains on high flow O2 at 35%. Objective - Constitutional Vitals: Vital Signs - 12hr 08/07/20 08/07/20 08/08/20 20:16 23:10 02:52 Temperature 98.0 F Pulse Rate 87 Respiratory 20 Rate Blood Pressure 132/81 O2 Sat by Pulse 94 96 96 Oximetry 08/08/20 08/08/20 04:57 07:09 Temperature 98.4 F Pulse Rate 88 88 Respiratory 18 Rate Blood Pressure 121/81 121/81 O2 Sat by Pulse 95 Oximetry General appearance: Present: no acute distress, well-nourished - EENT Eyes: PERRL, EOM intact ENT: hearing intact, clear oral mucosa Ears: bilateral: normal - Neck Neck: supple, normal ROM - Respiratory Respiratory effort: normal Respiratory: bilateral: CTA - Breasts Breasts: normal - Cardiovascular Rhythm: regular Heart Sounds: Present: S1 & S2. Absent: gallop, rub Extremities: pulses intact, No edema, normal color, Full ROM - Gastrointestinal General gastrointestinal: Present: soft, non-tender, non-distended, normal bowel sounds - Genitourinary Male genitourinary: normal - Integumentary Integumentary: clear, warm, dry - Musculoskeletal Musculoskeletal: 1, strength equal bilaterally - Neurologic Neurologic: moves all extremities - Psychiatric Psychiatric: memory intact, appropriate mood/affect, intact judgment & insight - Labs CBC & Chem 7: 08/08/20 04:25 08/08/20 13:16 Labs: Abnormal lab results 08/07/20 08/07/20 08/07/20 Range/Units 08:54 08:54 10:09 WBC (4.5-11.0) K/mm3 BUN (9-20) mg/dL Glucose 210 H (75-100) mg/dL POC Glucose 176 H (70-105) mg/dL SARS-CoV-2 IgG Ab Reactive A (NonReactive) 08/07/20 08/07/20 08/07/20 Range/Units 11:08 16:11 21:02 WBC (4.5-11.0) K/mm3 BUN (9-20) mg/dL Glucose (75-100) mg/dL POC Glucose 171 H 267 H 272 H (70-105) mg/dL SARS-CoV-2 IgG Ab (NonReactive) 08/08/20 08/08/20 Range/Units 04:25 04:25 WBC 11.2 H (4.5-11.0) K/mm3 BUN 25 H (9-20) mg/dL Glucose 289 H (75-100) mg/dL POC Glucose (70-105) mg/dL SARS-CoV-2 IgG Ab (NonReactive) HEART Score - HEART Score EKG: Normal Age: < 45 Risk factors: No known risk factors Troponin: Troponin T < 0.010 ng/mL (0.00-0.029) 08/06/20 14:08 Troponin: < normal limit - Critical Actions Critical Actions: 0-3 pts:0.9-1.7%risk of adverse cardiac event.Candidate for d ischarge
[2020-08-08 08:23] LABS: Band Neutrophils # (Manual) 0.2 K/mm3; Basophils % (Manual) 0 % (0.0-1.8); Eosinophils % (Manual) 0 % (0.0-4.3); Total Cells Counted 100
[2020-08-08 08:24] LABS: Anisocytosis 1+; Platelet Estimate Consistent w Auto
[2020-08-08] MEDS: cefTRIAXone/NS 2 GM/100 ML 2 GM/100 ML BAG IV SCH (09:50)
[2020-08-08] MEDS: ZINC SULFATE 220 MG CAP PO SCH ×2 (09:51→22:02)
[2020-08-08] MEDS: ENOXAPARIN 100 MG/1 ML INJ SUB-Q SCH ×2 (09:51→22:02)
[2020-08-08] MEDS: ASPIRIN 325 MG TAB PO SCH (09:51)
[2020-08-08] MEDS: CHOLECALCIFEROL (VIT D3) 5,000 UNIT TAB PO SCH (09:52)
[2020-08-08] MEDS: ASCORBIC ACID 500 MG TAB PO SCH ×2 (09:52→22:02)
[2020-08-08] MEDS: dexAMETHasone 4 MG/ML VIAL IV SCH (09:53)
[2020-08-08] MEDS: INSULIN REGULAR, HUMAN 100 UNIT/ML 3ML VIAL SUB-Q SCH ×4 (09:54→23:21)
[2020-08-08] MEDS: AZITHROMYCIN 500 MG in SODIUM CHLORIDE 0.9% 250ML 250 ML IV SCH (10:20)
[2020-08-08 14:16] LABS: C-Reactive Protein 10.4 mg/dL (0.00-1.30)
[2020-08-08 14:18] LABS: Alanine Aminotransferase 40 units/L (7-56); Albumin 3.2 g/dL (3.9-5); BUN/Creatinine Ratio 28; Blood Urea Nitrogen 25 mg/dL (9-20); Calcium 8.7 mg/dL (8.4-10.2); Hemolysis Index 21
[2020-08-08] MEDS: REMDESIVIR 100 MG in SODIUM CHLORIDE 0.9% 250ML 250 ML IV SCH (22:01)
[2020-08-08] MEDS: SODIUM CHLORIDE 0.9% 50 ML IVPB IV SCH ×2 (22:03→23:34)
[2020-08-08] MEDS: INSULIN GLARGINE 100 UNITS/ML SUB-Q SCH (23:22)
[2020-08-09] MEDS: NITROGLYCERIN 2% OINT 1 GM TP SCH ×4 (06:45→18:46)
[2020-08-09] MEDS: INSULIN REGULAR, HUMAN 100 UNIT/ML 3ML VIAL SUB-Q SCH ×4 (08:52→21:52)
--- NOTE | 2020-08-09 09:22 | Progress Note ---
Assessment and Plan Severe COVID-19 pneumonia - chest x-ray with diffuse bilateral infiltrates -Patient continues to improve able to wean O2 down to 30%. Still requiring high flow O2. - ID consulted, started on dexamethasone and remdesivir -Continue ceftriaxone 2 g every day and azithromycin 500 mg every day to complete 5 and 3 days effectively given elevated white count and procalcitonin. Procalcitonin level normal. - follow daily inflammatory markers, supplemental O2 to keep >94% wean O2 as tolerated Severe sepsis secondary to COVID-19 pneumonia oxygenation improving slowly. Discussed with patient physician given additional dose of vitamin D today. Acute hypoxemic respiratory failure - secondary to covid PNA. -Continue to wean high flow O2 as tolerated down to 30% nasal cannula. - pulmonary consulted, cont iv steroid - wean off O2 as tolerated DM type 2 - consistent carb diet, SSI uncontrolled will add lantus at 10 units QHS Much better controlled with addition of Lantus. Accu-Cheks 109 and 123. Obesity, dietary recommendation when clinically stable DVT Px, per COVID 19 protocol Subjective Date of service: 08/09/20 Principal diagnosis: COVID-19 pneumonia Interval history: Patient without any concerns. Spoke with his cousin who is a physician in [facility]. All questions and concerns answered to their satisfaction. Patient a ble to wean O2 down to 30% today high flow O2. Feels much better no concerns. . Objective - Constitutional Vitals: Vital Signs - 12hr 08/08/20 08/09/20 08/09/20 22:43 02:05 06:18 Temperature 98.2 F 98.4 F Pulse Rate 76 74 Respiratory 20 20 Rate Blood Pressure 127/82 139/93 O2 Sat by Pulse 97 97 98 Oximetry General appearance: Present: no acute distress, well-nourished - EENT Eyes: PERRL, EOM intact ENT: hearing intact, clear oral mucosa Ears: bilateral: normal - Neck Neck: supple, normal ROM - Respiratory Respiratory effort: normal Respiratory: bilateral: diminished - Breasts Breasts: normal - Cardiovascular Rhythm: regular Heart Sounds: Present: S1 & S2. Absent: gallop, rub Extremities: pulses intact, No edema, normal color, Full ROM - Gastrointestinal General gastrointestinal: Present: soft, non-tender, non-distended, normal bowel sounds - Genitourinary Male genitourinary: normal - Integumentary Integumentary: clear, warm, dry - Musculoskeletal Musculoskeletal: 1, strength equal bilaterally - Neurologic Neurologic: moves all extremities - Psychiatric Psychiatric: memory intact, appropriate mood/affect, intact judgment & insight - Labs CBC & Chem 7: 08/08/20 04:25 08/08/20 13:16 Labs: Abnormal lab results 08/08/20 08/08/20 08/08/20 Range/Units 12:09 13:16 13:24 D-Dimer 253.57 H (0-234) ng/mlDDU BUN 25 H (9-20) mg/dL Glucose 260 H (75-100) mg/dL POC Glucose 230 H (70-105) mg/dL Ferritin (30.0-300.0) ng/mL Lactate Dehydrogenase (91-180) units/L C-Reactive Protein (0.00-1.30) mg/dL Albumin 3.2 L (3.9-5) g/dL 08/08/20 08/08/20 08/08/20 Range/Units 13:24 13:24 16:29 D-Dimer (0-234) ng/mlDDU BUN (9-20) mg/dL Glucose (75-100) mg/dL POC Glucose 256 H (70-105) mg/dL Ferritin 1195.0 H (30.0-300.0) ng/mL Lactate Dehydrogenase 301 H (91-180) units/L C-Reactive Protein 10.40 H (0.00-1.30) mg/dL Albumin (3.9-5) g/dL 08/08/20 08/09/20 Range/Units 22:41 08:16 D-Dimer (0-234) ng/mlDDU BUN (9-20) mg/dL Glucose (75-100) mg/dL POC Glucose 210 H 123 H (70-105) mg/dL Ferritin (30.0-300.0) ng/mL Lactate Dehydrogenase (91-180) units/L C-Reactive Protein (0.00-1.30) mg/dL Albumin (3.9-5) g/dL HEART Score - HEART Score EKG: Normal Age: < 45 Risk factors: No known risk factors Troponin: Troponin T < 0.010 ng/mL (0.00-0.029) 08/06/20 14:08 Troponin: < normal limit - Critical Actions Critical Actions: 0-3 pts:0.9-1.7%risk of adverse cardiac event.Candidate for discharge
[2020-08-09] MEDS: ZINC SULFATE 220 MG CAP PO SCH ×2 (10:00→21:50)
[2020-08-09] MEDS: ASPIRIN 325 MG TAB PO SCH (10:01)
[2020-08-09] MEDS: ASCORBIC ACID 500 MG TAB PO SCH ×2 (10:01→21:50)
[2020-08-09] MEDS: FUROSEMIDE 20 MG/2 ML INJ IV SCH ×2 (10:02→10:33)
[2020-08-09] MEDS: ENOXAPARIN 100 MG/1 ML INJ SUB-Q SCH ×2 (10:02→21:50)
[2020-08-09] MEDS: dexAMETHasone 4 MG/ML VIAL IV SCH (10:02)
[2020-08-09] MEDS: cefTRIAXone/NS 2 GM/100 ML 2 GM/100 ML BAG IV SCH (10:03)
[2020-08-09] MEDS: CHOLECALCIFEROL (VIT D3) 5,000 UNIT TAB PO SCH ×2 (10:06→18:46)
[2020-08-09] MEDS ORDERED: dexAMETHasone 4 MG/ML VIAL IV SCH (10:19)
[2020-08-09 14:41] LABS: BUN/Creatinine Ratio 25; Blood Urea Nitrogen 25 mg/dL (9-20); Calcium 8.6 mg/dL (8.4-10.2); Hemolysis Index 4
[2020-08-09] MEDS: INSULIN GLARGINE 100 UNITS/ML SUB-Q SCH (21:49)
[2020-08-09] MEDS: REMDESIVIR 100 MG in SODIUM CHLORIDE 0.9% 250ML 250 ML IV SCH (21:49)
[2020-08-09] MEDS: SODIUM CHLORIDE 0.9% 50 ML IVPB IV SCH (21:55)
[2020-08-10] MEDS: NITROGLYCERIN 2% OINT 1 GM TP SCH ×4 (05:35→19:22)
[2020-08-10 06:54] LABS: BUN/Creatinine Ratio 21; Blood Urea Nitrogen 21 mg/dL (9-20); Calcium 8.7 mg/dL (8.4-10.2); Hemolysis Index 8
[2020-08-10] MEDS: INSULIN REGULAR, HUMAN 100 UNIT/ML 3ML VIAL SUB-Q SCH ×5 (08:50→23:00)
--- NOTE | 2020-08-10 10:40 | Progress Note ---
Assessment and Plan Severe COVID-19 pneumonia - chest x-ray with diffuse bilateral infiltrates - ID consulted, started on dexamethasone and remdesivir -Continue ceftriaxone 2 g every day and azithromycin 500 mg every day to complete 5 and 3 days effectively given elevated white count and procalcitonin. - follow daily inflammatory markers, supplemental O2 to keep >94% Severe sepsis - secondary to COVID-19 pneumonia -oxygenation improving slowly. Acute hypoxemic respiratory failure - Likely secondary to COVID-19 infection. - Currently on high flow 30L nasal cannula with 50% FiO2. - pulmonary consulted, cont iv steroid - wean off O2 as tolerated - lasix IV for presumed pulmonary edema DM type 2 - consistent carb diet, long acting and SSI Obesity, dietary recommendation when clinically stable DVT Px, per COVID 19 protocol Brief History: 45 year old male with history of DM who tested positive to COVID -19 2 days ago presented with pressure like chest pain associated with cough, fever and shortness of breath. Chest pain is worse with exertion and better with rest. he has been placed on COVID 19 protocol, ID consulted, started on remdesivir and iv dexamethasone. Now on high flow o2, will cont current mx, follow Id recommendation. 08/06: 45 year old male with history of DM who tested positive to COVID -19 2 days ago presented with pressure like chest pain associated with cough, fever and shortness of breath. Chest pain is worse with exertion and better with rest. he has been placed on COVID 19 protocol, ID consulted, started on remdesivir and iv dexamethasone. Now on 4L o2, will cont current mx, follow Id recommendation. 08/07: cont dexamethasone and remdesivir. ordered lasix iv for possible pulmonary edema. repeat BMP tomorrow. 08/08; Patient without any concerns. Spoked with his cousin who is a physician in [facility]. All questions and concerns answered to their satisfaction. Patient remains on high flow O2 at 35%. 08/09: Patient able to wean O2 down to 30% today high flow O2. Feels much better no concerns. monitor daily BMP/ins/os as patient getting lasix. 08/10: patient on 30L O2 today with 40% high flow FiO2. last dose of remdesivir. follow inflammatory markers Subjective Date of service: 08/10/20 Principal diagnosis: COVID-19 pneumonia Interval history: Patient seen and examined Now on 40% high flow O2 tolerating diet, c/o cough no chest pain Objective - Exam Narrative Exam: General appearance: Present: no distress - EENT Eyes: Present: PERRL ENT: hearing intact, clear oral mucosa, dentition normal - Neck Neck: Present: supple, normal ROM - Respiratory Respiratory effort: normal - Cardiovascular Rhythm: irregularly irregular Heart Sounds: Present: S1 & S2. Absent: gallop, systolic murmur, diastolic murmur - Extremities Extremities: no ischemia, No edema Peripheral Pulses: within normal limits - Abdominal General gastrointestinal: Present: soft, non-tender, non-distended. Absent: tender, distended, rigid, mass Male genitourinary: Present: deferred - Rectal Rectal Exam: deferred - Integumentary Integumentary: Present: clear, warm, dry - Musculoskeletal Musculoskeletal: strength equal bilaterally - Psychiatric Psychiatric: appropriate mood/affect - Constitutional Vitals: Vital Signs - 12hr 08/10/20 08/10/20 08/10/20 02:10 04:14 08:50 Temperature 98.3 F Pulse Rate 64 Respiratory 20 Rate Blood Pressure 144/96 O2 Sat by Pulse 100 97 94 Oximetry - Labs CBC & Chem 7: 08/08/20 04:25 08/12/20 07:49 Labs: Abnormal lab results 08/09/20 08/09/20 08/09/20 Range/Units 11:29 13:57 17:13 BUN 25 H (9-20) mg/dL Glucose 285 H (75-100) mg/dL POC Glucose 165 H 260 H (70-105) mg/dL 08/09/20 08/10/20 Range/Units 21:14 06:04 BUN 21 H (9-20) mg/dL Glucose 131 H (75-100) mg/dL POC Glucose 244 H (70-105) mg/dL HEART Score - HEART Score EKG: Normal Age: < 45 Risk factors: No known risk factors Troponin: Troponin T < 0.010 ng/mL (0.00-0.029) 08/06/20 14:08 Troponin: < normal limit - Critical Actions Critical Actions: 0-3 pts:0.9-1.7%risk of adverse cardiac event.Candidate for discharge
[2020-08-10] MEDS: cefTRIAXone/NS 2 GM/100 ML 2 GM/100 ML BAG IV SCH (10:52)
[2020-08-10] MEDS: ZINC SULFATE 220 MG CAP PO SCH ×2 (10:53→21:36)
[2020-08-10] MEDS: ASCORBIC ACID 500 MG TAB PO SCH ×2 (10:53→21:37)
[2020-08-10] MEDS: ENOXAPARIN 100 MG/1 ML INJ SUB-Q SCH ×2 (10:54→21:38)
[2020-08-10] MEDS: CHOLECALCIFEROL (VIT D3) 5,000 UNIT TAB PO SCH (10:54)
[2020-08-10] MEDS: ASPIRIN 325 MG TAB PO SCH (10:55)
[2020-08-10] MEDS: FUROSEMIDE 20 MG/2 ML INJ IV SCH (11:01)
--- NOTE | 2020-08-10 13:23 | Progress Note ---
Assessment and Plan Cultures: Blood culture no growth today A/P: 45-year-old man past medical history diabetes, obesity admitted with COVID- 19 pneumonia. #Severe COVID-19 pneumonia: Patient presented with 2 days of symptoms, chest x- ray with diffuse bilateral infiltrates, admission O2 sats 81% on room air. SARS-CoV-2 IgG positive. Patient is not a candidate for Covid convalescent plasma. Procalcitonin initially elevated, now down to 1.5. Likely falsely elevated due to initial elevated creatinine. #Acute hypoxemic respiratory failure: Likely secondary to COVID-19 infection. Remains on high flow nasal cannula 50%, 3 L. #Diabetes: tight glycemic control for best outcomes. #Obesity: Associated with worse COVID-19 outcomes Recs: -Continue steroids for 10 days, consider increasing to 6 mg twice daily -Continue remdesivir D4 of 5 -Completed ceftriaxone 2 g every day 5 days and azithromycin 500 mg every day 3 days -Anticoagulation per hospital policy -Proning as able -Recheck COVID-19 markers and procalcitonin today -Patient requested to call Dr. Wilkinson, drill press tender who is a family member, I did, Dr. Martinez wants more information about his osmolarity and intermittent diuresis. All questions answered. I placed a message to , who is planning to consult pulmonary. -Agree with pulmonary consult will noni Harry MD [facility] ([facility]) Office [phone] Subjective Date of service: 08/10/20 Principal diagnosis: COVID-19 pneumonia Interval history: Patient remains on high flow nasal cannula 50%, 3 L, no fever since admission. Denies any chest pain, nausea, vomiting, diarrhea. Objective - Exam Narrative Exam: Physical Exam: reviewed ED and hospitalist notes, limited due to conservation of PPE and decrease risk of transmission. General appearance: limited due to conservation of PPE Eyes: limited due to conservation of PPE HENT: Atraumatic; limited due to conservation of PPE Lungs: limited due to conservation of PPE CV: limited due to conservation of PPE Abdomen: limited due to conservation of PPE Extremities: limited due to conservation of PPE Skin: limited due to conservation of PPE Psych: limited due to conservation of PPE Neuro: limited due to conservation of PPE - Constitutional Vitals: Vital Signs Temp Pulse Resp BP Pulse Ox 98.3 F 71 20 119/68 94 08/10/20 04:14 08/10/20 11:12 08/10/20 04:14 08/10/20 11:12 08/10/20 08:50 Temperature -Last 24 Hours Temperature 98.3 F Temperature 98.2 F Temperature 98.9 F - Labs CBC & Chem 7: 08/08/20 04:25 08/10/20 06:04 Labs: Abnormal lab results 08/09/20 08/09/20 08/09/20 Range/Units 13:57 17:13 21:14 BUN 25 H (9-20) mg/dL Glucose 285 H (75-100) mg/dL POC Glucose 260 H 244 H (70-105) mg/dL 08/10/20 Range/Units 06:04 BUN 21 H (9-20) mg/dL Glucose 131 H (75-100) mg/dL POC Glucose (70-105) mg/dL
[2020-08-10 15:08] LABS: C-Reactive Protein 3.6 mg/dL (0.00-1.30)
[2020-08-10] MEDS ORDERED: SODIUM CHLORIDE 0.9% 50 ML IVPB IV SCH (21:00)
[2020-08-10] MEDS: REMDESIVIR 100 MG in SODIUM CHLORIDE 0.9% 250ML 250 ML IV SCH (21:36)
[2020-08-10] MEDS: dexAMETHasone 4 MG/ML VIAL IV SCH (21:39)
[2020-08-10] MEDS: INSULIN GLARGINE 100 UNITS/ML SUB-Q SCH (23:02)
[2020-08-11] MEDS: NITROGLYCERIN 2% OINT 1 GM TP SCH ×4 (06:16→17:44)
[2020-08-11 07:16] LABS: BUN/Creatinine Ratio 26; Blood Urea Nitrogen 23 mg/dL (9-20); Calcium 8.8 mg/dL (8.4-10.2); Hemolysis Index 4
--- NOTE | 2020-08-11 08:34 | Progress Note ---
Assessment and Plan Cultures: Blood culture no growth today A/P: 45-year-old man past medical history diabetes, obesity admitted with COVID- 19 pneumonia. #Severe COVID-19 pneumonia: Patient presented with 2 days of symptoms, chest x- ray with diffuse bilateral infiltrates, admission O2 sats 81% on room air. SARS-CoV-2 IgG positive. Patient is not a candidate for Covid convalescent plasma. Procalcitonin initially elevated, now down to 1.5. Likely falsely elevated due to initial elevated creatinine. Markers improving. Procalcitonin improving now 0.7. #Acute hypoxemic respiratory failure: Likely secondary to COVID-19 infection. Remains on high flow nasal cannula 40% #Diabetes: tight glycemic control for best outcomes. #Obesity: Associated with worse COVID-19 outcomes Recs: -Continue dexamethasone 6 mg twice daily for 10 days -Continue remdesivir D5 of 5 -Completed ceftriaxone 2 g every day 5 days and azithromycin 500 mg every day 3 days -Anticoagulation per hospital policy -Proning as able -Recheck COVID-19 markers and procalcitonin today -Patient requested to call Dr. Wilkinson, associate professor who is a family member, I talked to him yesterday, Dr. Martinez wants more information about his os molarity and intermittent diuresis. All questions answered. -Agree with pulmonary consult-pending will noni Harry MD [facility] ([facility]) Office [phone] Subjective Date of service: 08/11/20 Principal diagnosis: COVID-19 pneumonia Interval history: Patient remains on high flow nasal cannula 40%, no fever Objective - Exam Narrative Exam: Physical Exam: reviewed ED and hospitalist notes, limited due to conservation of PPE and decrease risk of transmission. General appearance: limited due to conservation of PPE Eyes: limited due to conservation of PPE HENT: Atraumatic; limited due to conservation of PPE Lungs: limited due to conservation of PPE CV: limited due to conservation of PPE Abdomen: limited due to conservation of PPE Extremities: limited due to conservation of PPE Skin: limited due to conservation of PPE Psych: limited due to conservation of PPE Neuro: limited due to conservation of PPE - Constitutional Vitals: Vital Signs Temp Pulse Resp BP Pulse Ox 98.2 F 76 16 110/74 95 08/11/20 05:27 08/11/20 06:16 08/11/20 05:27 08/11/20 06:16 08/11/20 05:27 Temperature -Last 24 Hours Temperature 98.2 F Temperature 97.5 F Temperature 98.2 F Temperature 98.2 F - Labs CBC & Chem 7: 08/08/20 04:25 08/11/20 04:22 Labs: Abnormal lab results 08/10/20 08/10/20 08/10/20 Range/Units 14:33 14:33 18:12 BUN (9-20) mg/dL Glucose (75-100) mg/dL POC Glucose 327 H (70-105) mg/dL Ferritin 1030.0 H (30.0-300.0) ng/mL Lactate Dehydrogenase 310 H (91-180) units/L C-Reactive Protein 3.60 H (0.00-1.30) mg/dL 08/10/20 08/11/20 08/11/20 Range/Units 22:06 04:22 08:15 BUN 23 H (9-20) mg/dL Glucose 242 H (75-100) mg/dL POC Glucose 207 H 176 H (70-105) mg/dL Ferritin (30.0-300.0) ng/mL Lactate Dehydrogenase (91-180) units/L C-Reactive Protein (0.00-1.30) mg/dL
[2020-08-11] MEDS: ASPIRIN 325 MG TAB PO SCH (09:23)
[2020-08-11] MEDS: dexAMETHasone 4 MG/ML VIAL IV SCH ×2 (09:24→22:27)
[2020-08-11] MEDS: ENOXAPARIN 100 MG/1 ML INJ SUB-Q SCH (09:24)
[2020-08-11] MEDS: FUROSEMIDE 20 MG/2 ML INJ IV SCH (09:24)
[2020-08-11] MEDS: INSULIN REGULAR, HUMAN 100 UNIT/ML 3ML VIAL SUB-Q SCH ×4 (09:25→22:28)
[2020-08-11] MEDS: CHOLECALCIFEROL (VIT D3) 5,000 UNIT TAB PO SCH (09:25)
[2020-08-11] MEDS: ZINC SULFATE 220 MG CAP PO SCH ×2 (09:26→22:27)
[2020-08-11] MEDS: ASCORBIC ACID 500 MG TAB PO SCH ×2 (09:32→22:27)
[2020-08-11] MEDS: APIXABAN 5 MG TAB PO SCH ×2 (10:14→22:27)
--- NOTE | 2020-08-11 18:31 | Progress Note ---
Assessment and Plan Severe COVID-19 pneumonia - chest x-ray with diffuse bilateral infiltrates - ID consulted, s/p dexamethasone and remdesivir -s/p ceftriaxone 2 g every day and azithromycin 500 mg every day, completed 5 and 3 days effectively given elevated white count and procalcitonin. - follow daily inflammatory markers, supplemental O2 to keep >94% Severe sepsis - secondary to COVID-19 pneumonia -oxygenation improving slowly. Acute hypoxemic respiratory failure - Likely secondary to COVID-19 infection. - Currently on high flow 4-5L N/c - pulmonary consulted, cont iv steroid - wean off O2 as tolerated - lasix IV for likely pulmonary edema DM type 2 - consistent carb diet, long acting and SSI Obesity, dietary recommendation when clinically stable DVT Px, per COVID 19 protocol Brief History: 45 year old male with history of DM who tested positive to COVID -19 2 days ago presented with pressure like chest pain associated with cough, fever and shortness of breath. Chest pain is worse with exertion and better with rest. he has been placed on COVID 19 protocol, ID consulted, started on remdesivir and iv dexamethasone. Now on high flow o2, will cont current mx, follow Id recommendation. 08/06: 45 year old male with history of DM who tested positive to COVID -19 2 days ago presented with pressure like chest pain associated with cough, fever and shortness of breath. Chest pain is worse with exertion and better with rest. he has been placed on COVID 19 protocol, ID consulted, started on remdesivir and iv dexamethasone. Now on 4L o2, will cont current mx, follow Id recommendation. 08/07: cont dexamethasone and remdesivir. ordered lasix iv for possible pulmonary edema. repeat BMP tomorrow. 08/08; Patient without any concerns. Spoked with his cousin who is a physician in [facility]. All questions and concerns answered to their satisfaction. Patient remains on high flow O2 at 35%. 08/09: Patient able to wean O2 down to 30% today high flow O2. Feels much better no concerns. monitor daily BMP/ins/os as patient getting lasix. 08/10: patient on 30L O2 today with 40% high flow FiO2. last dose of remdesivir. follow inflammatory markers. 08/11: trended down to 5L n/c today, feels better. if clinically stable possible d/c tomorrow. Assess for home O2 on discharge. Subjective Date of service: 08/11/20 Principal diagnosis: COVID-19 pneumonia Interval history: Patient seen and examined Now on 6L home O2 tolerating diet, c/o cough no chest pain Objective - Exam Narrative Exam: General appearance: Present: no distress - EENT Eyes: Present: PERRL ENT: hearing intact, clear oral mucosa, dentition normal - Neck Neck: Present: supple, normal ROM - Respiratory Respiratory effort: normal - Cardiovascular Rhythm: irregularly irregular Heart Sounds: Present: S1 & S2. Absent: gallop, systolic murmur, diastolic murmur - Extremities Extremities: no ischemia, No edema Peripheral Pulses: within normal limits - Abdominal General gastrointestinal: Present: soft, non-tender, non-distended. Absent: tender, distended, rigid, mass Male genitourinary: Present: deferred - Rectal Rectal Exam: deferred - Integumentary Integumentary: Present: clear, warm, dry - Musculoskeletal Musculoskeletal: strength equal bilaterally - Psychiatric Psychiatric: appropriate mood/affect - Constitutional Vitals: Vital Signs - 12hr 08/11/20 08/11/20 08/11/20 10:06 11:23 16:40 Temperature 98.1 F 98.2 F Pulse Rate 92 H 80 Respiratory 19 20 Rate Blood Pressure 121/80 124/76 O2 Sat by Pulse 94 93 96 Oximetry 08/11/20 17:44 Temperature Pulse Rate Respiratory Rate Blood Pressure 124/76 O2 Sat by Pulse Oximetry - Labs CBC & Chem 7: 08/08/20 04:25 08/12/20 07:49 Labs: Abnormal lab results 08/10/20 08/11/20 08/11/20 Range/Units 22:06 04:22 08:15 BUN 23 H (9-20) mg/dL Glucose 242 H (75-100) mg/dL POC Glucose 207 H 176 H (70-105) mg/dL 08/11/20 08/11/20 Range/Units 11:22 16:39 BUN (9-20) mg/dL Glucose (75-100) mg/dL POC Glucose 253 H 320 H (70-105) mg/dL HEART Score - HEART Score EKG: Normal Age: < 45 Risk factors: No known risk factors Troponin: Troponin T < 0.010 ng/mL (0.00-0.029) 08/06/20 14:08 Troponin: < normal limit - Critical Actions Critical Actions: 0-3 pts:0.9-1.7%risk of adverse cardiac event.Candidate for discharge
[2020-08-11] MEDS: INSULIN GLARGINE 100 UNITS/ML SUB-Q SCH (22:48)
[2020-08-12] MEDS: NITROGLYCERIN 2% OINT 1 GM TP SCH ×2 (05:49→09:06)
--- NOTE | 2020-08-12 07:42 | Progress Note ---
Assessment and Plan Cultures: Blood culture no growth today A/P: 45-year-old man past medical history diabetes, obesity admitted with COVID- 19 pneumonia. #Severe COVID-19 pneumonia: Patient presented with 2 days of symptoms, chest x- ray with diffuse bilateral infiltrates, admission O2 sats 81% on room air. SARS-CoV-2 IgG positive. Patient is not a candidate for Covid convalescent plasma. Procalcitonin initially elevated, now down to 1.5. Likely falsely elevated due to initial elevated creatinine. Markers improving. Procalcitonin improving now 0.7. #Acute hypoxemic respiratory failure: Likely secondary to COVID-19 infection. Improving. Now on 6 L nasal cannula. #Diabetes: tight glycemic control for best outcomes. #Obesity: Associated with worse COVID-19 outcomes Recs: -Obtain exercise pulse [id number] walking test, if patient passes test okay to discharge home, if desaturation then consider arranging home O2 -Continue dexamethasone 6 mg twice daily for 10 days, then taper -Completed remdesivir -Completed ceftriaxone and azithromycin -Anticoagulation per hospital policy -Proning as able -Recheck COVID-19 markers and procalcitonin today will follow Jennifer Harry MD [facility] ([facility]) Office [phone] Subjective Date of service: 08/12/20 Principal diagnosis: COVID-19 pneumonia Interval history: Patient reports feeling much better, no fever, currently on 6 L nasal cannula Objective - Exam Narrative Exam: Physical Exam: reviewed ED and hospitalist notes, limited due to conservation of PPE and decrease risk of transmission. General appearance: limited due to conservation of PPE Eyes: limited due to conservation of PPE HENT: Atraumatic; limited due to conservation of PPE Lungs: limited due to conservation of PPE CV: limited due to conservation of PPE Abdomen: limited due to conservation of PPE Extremities: limited due to conservation of PPE Skin: limited due to conservation of PPE Psych: limited due to conservation of PPE Neuro: limited due to conservation of PPE - Constitutional Vitals: Vital Signs Temp Pulse Resp BP Pulse Ox 98.2 F 77 18 135/77 95 08/12/20 05:40 08/12/20 05:40 08/12/20 05:40 08/12/20 05:40 08/12/20 05:40 Temperature -Last 24 Hours Temperature 98.2 F Temperature 97.5 F Temperature 98.2 F Temperature 98.1 F - Labs CBC & Chem 7: 08/08/20 04:25 08/11/20 04:22 Labs: Abnormal lab results 08/11/20 08/11/20 08/11/20 Range/Units 08:15 11:22 16:39 POC Glucose 176 H 253 H 320 H (70-105) mg/dL 08/11/20 Range/Units 21:30 POC Glucose 318 H (70-105) mg/dL
[2020-08-12 08:44] LABS: BUN/Creatinine Ratio 26; Blood Urea Nitrogen 23 mg/dL (9-20); Calcium 8.9 mg/dL (8.4-10.2); Hemolysis Index 16
[2020-08-12] MEDS: INSULIN REGULAR, HUMAN 100 UNIT/ML 3ML VIAL SUB-Q SCH ×4 (09:06→21:28)
[2020-08-12] MEDS: dexAMETHasone 4 MG/ML VIAL IV SCH (09:07)
[2020-08-12] MEDS: ZINC SULFATE 220 MG CAP PO SCH ×2 (09:08→21:28)
[2020-08-12] MEDS: ASCORBIC ACID 500 MG TAB PO SCH ×2 (09:08→21:29)
[2020-08-12] MEDS: ASPIRIN 325 MG TAB PO SCH (09:09)
[2020-08-12] MEDS: APIXABAN 5 MG TAB PO SCH ×2 (09:09→21:28)
[2020-08-12] MEDS: CHOLECALCIFEROL (VIT D3) 5,000 UNIT TAB PO SCH (09:10)
[2020-08-12] MEDS ORDERED: FUROSEMIDE 40 MG/4 ML INJ IV SCH ×2 (10:00)
[2020-08-12] MEDS ORDERED: FUROSEMIDE 20 MG TAB PO SCH (10:00)
--- NOTE | 2020-08-12 12:56 | Discharge Summary ---
Providers - Providers Date of Admission: 08/06/20 02:50 Date of discharge: 08/13/20 Attending physician: NATHAN MENA 08/06/20 02:59 Consult to Physician [CONS] Routine Comment: Consulting Provider: MUSHTAQ GOETZ Physician Instructions: Reason For Exam: COVID 19 INFECTION Primary care physician: IT PROGRAMMER Hospitalization Condition: Critical Pertinent studies: CXR Hospital course: 45 year old male with history of DM who tested positive to COVID -19 2 days ago presented with pressure like chest pain associated with cough, fever and shortness of breath. Chest pain is worse with exertion and better with rest. he has been placed on COVID 19 protocol, ID consulted, started on remdesivir and iv dexamethasone, high flow o2, consulted Id for recommendation. daily course; 08/06: 45 year old male with history of DM who tested positive to COVID -19 2 days ago before this admission presented with pressure like chest pain associated with cough, fever and shortness of breath. Chest pain is worse with exertion and better with rest. he has been placed on COVID 19 protocol, ID consulted, started on remdesivir and iv dexamethasone. Now on 4L o2, will cont current mx, follow Id recommendation. 08/07: cont dexamethasone and remdesivir. ordered lasix iv for possible pulmonary edema. repeat BMP tomorrow. patient placed on high flow O2 overnight 08/08; Patient without any concerns. MD Spoked with his cousin who is a physician in [facility]. All questions and concerns answered to their satisfaction. Patient remains on high flow O2 at 35%. 08/09: Patient able to wean O2 down to 30% today high flow O2. Feels much better no concerns. monitor daily BMP/ins/os as patient getting lasix. 08/10: patient on 30L O2 today with 40% high flow FiO2. last dose of remdesivir. follow inflammatory markers. 08/11: trended down to 5L n/c today, feels better. if clinically stable possible d/c tomorrow. Assess for home O2 on discharge. 08/12: Patient oxygen saturation drops to 87% on ambulation. He will need home oxygen 3 L with nasal cannula. Inflammatory markers are stable. Completed remdesivir and antibiotics dose. Patient recommended to follow-up with primary care physician in 1 week. Patient will be discharged when home oxygen is arranged. 08/13: Home O2 arrangement completed today. Patient is clinically stable for discharge. [facility] Recommended to remain quarantine for additional 1 week till Covid test is negative. Discharge Diagnosis; Severe COVID-19 pneumonia - chest x-ray with diffuse bilateral infiltrates - ID consulted, s/p dexamethasone iv and remdesivir iv -We will continue dexamethasone p.o. to complete the course -s/p ceftriaxone 2 g every day and azithromycin 500 mg every day, completed 5 and 3 days effectively given elevated white count and procalcitonin. - followed daily inflammatory markers, provided supplemental O2 to keep >94% Severe sepsis - secondary to COVID-19 pneumonia -oxygenation improving slowly. Acute hypoxemic respiratory failure - Likely secondary to COVID-19 infection. -Required high flow O2, currently weaned off to 3 L nasal cannula - pulmonary consulted, placed on iv steroid -Status post lasix IV for pulmonary edema DM type 2 - consistent carb diet, long acting and SSI Obesity, dietary recommendation when clinically stable DVT Px, per COVID 19 protocol Disposition: [id number] HOME UNDER HOME [facility] Time spent for discharge: 34 minutes Core Measure Documentation - Palliative Care Palliative Care/ Comfort Measures: Not Applicable - Core Measures Any of the following diagnoses?: none Exam - Physical Exam Narrative exam: General appearance: Present: no distress - EENT Eyes: Present: PERRL ENT: hearing intact, clear oral mucosa, dentition normal - Neck Neck: Present: supple, normal ROM - Respiratory Respiratory effort: normal - Cardiovascular Rhythm: irregularly irregular Heart Sounds: Present: S1 & S2. Absent: gallop, systolic murmur, diastolic mu rmur - Extremities Extremities: no ischemia, No edema Peripheral Pulses: within normal limits - Abdominal General gastrointestinal: Present: soft, non-tender, non-distended. Absent: tender, distended, rigid, mass Male genitourinary: Present: deferred - Rectal Rectal Exam: deferred - Integumentary Integumentary: Present: clear, warm, dry - Musculoskeletal Musculoskeletal: strength equal bilaterally - Psychiatric Psychiatric: appropriate mood/affect - Constitutional Vitals: Temp Pulse Resp BP Pulse Ox 98.2 F 77 18 118/72 95 08/12/20 05:40 08/12/20 05:40 08/12/20 05:40 08/12/20 09:06 08/12/20 05:40 Plan Activity: advance as tolerated Weight Bearing Status: Non-Weight Bearing Diet: diabetic Special Instructions: record daily weights, record daily BP diary Additional Instructions: Follow-up with primary care physician in 1 week. Please keep your self quarantine at least for 1 week till your Covid test become negative Follow up with: PRIMARY CARE, [Primary Care Provider] - 3-5 Days Prescriptions: Insulin Glargine [Lantus VIAL] 10 units SUB-Q QHS 14 Days dexAMETHasone [Decadron] 6 mg PO Q12HR #14 tablet Apixaban [Eliquis] 5 mg PO Q12HR #20 tablet Insulin Regular, Human [HumuLIN R] 0 unit SUB-Q ACHS 14 Days Furosemide [Lasix] 20 mg PO QDAY #5 tablet Ascorbic Acid [Vitamin C] 1,000 mg PO BID #20 tablet Zinc Sulfate 220 mg PO BID #20 capsule Other Discharge Orders: Glucometer (Amb) Location: None Selected Glucometer supplies[Amb] Location: None Selected
[2020-08-12 16:38] LABS: C-Reactive Protein 1.4 mg/dL (0.00-1.30)
[2020-08-12] MEDS: INSULIN GLARGINE 100 UNITS/ML SUB-Q SCH (21:27)
[2020-08-12] MEDS: DEXAMETHASONE 4 MG TAB PO SCH (21:28)
--- NOTE | 2020-08-13 08:56 | Progress Note ---
Assessment and Plan Cultures: Blood culture no growth today A/P: 45-year-old man past medical history diabetes, obesity admitted with COVID- 19 pneumonia. #Severe COVID-19 pneumonia: Patient presented with 2 days of symptoms, chest x- ray with diffuse bilateral infiltrates, admission O2 sats 81% on room air. SARS-CoV-2 IgG positive. Patient is not a candidate for Covid convalescent plasma. Procalcitonin initially elevated, now down to 1.5. Likely falsely elevated due to initial elevated creatinine. Markers improving. Procalcitonin improving now 0.7. #Acute hypoxemic respiratory failure: Likely secondary to COVID-19 infection. Improving. Now on 3 L nasal cannula. Patient did not pass 6 minutes walking test, home O2 was ordered. #Diabetes: tight glycemic control for best outcomes. #Obesity: Associated with worse COVID-19 outcomes Recs: -Patient did not pass 6-minute walking test, home O2 was ordered. Okay to discharge home -Continue dexamethasone 6 mg twice daily for 10 days, then taper -Completed remdesivir -Completed ceftriaxone and azithromycin -Anticoagulation per hospital policy -Proning as able Jennifer Harry MD [facility] ([facility]) Office [phone] Subjective Date of service: 08/13/20 Principal diagnosis: COVID-19 pneumonia Interval history: Patient remains on 3 L nasal cannula, no fever, RA at rest 90% RA ambulating 87% 3lts O2 94% Objective - Exam Narrative Exam: Physical Exam: reviewed ED and hospitalist notes, limited due to conservation of PPE and decrease risk of transmission. General appearance: limited due to conservation of PPE Eyes: limited due to conservation of PPE HENT: Atraumatic; limited due to conservation of PPE Lungs: limited due to conservation of PPE CV: limited due to conservation of PPE Abdomen: limited due to conservation of PPE Extremities: limited due to conservation of PPE Skin: limited due to conservation of PPE Psych: limited due to conservation of PPE Neuro: limited due to conservation of PPE - Constitutional Vitals: Vital Signs Temp Pulse Resp BP Pulse Ox 97.6 F 67 18 104/61 96 08/13/20 05:23 08/13/20 05:23 08/13/20 05:23 08/13/20 05:23 08/13/20 08:22 Temperature -Last 24 Hours Temperature 97.6 F Temperature 97.9 F Temperature 98.3 F Temperature 98.3 F - Labs CBC & Chem 7: 08/08/20 04:25 08/12/20 07:49 Labs: Abnormal lab results 08/12/20 08/12/20 08/12/20 Range/Units 11:36 13:56 13:56 POC Glucose 225 H (70-105) mg/dL Ferritin 1076.0 H (30.0-300.0) ng/mL Lactate Dehydrogenase 223 H (91-180) units/L C-Reactive Protein 1.40 H (0.00-1.30) mg/dL 08/12/20 08/12/20 08/13/20 Range/Units 16:46 20:41 07:37 POC Glucose 352 H 298 H 195 H (70-105) mg/dL Ferritin (30.0-300.0) ng/mL Lactate Dehydrogenase (91-180) units/L C-Reactive Protein (0.00-1.30) mg/dL
[2020-08-13] MEDS: CHOLECALCIFEROL (VIT D3) 5,000 UNIT TAB PO SCH (09:41)
[2020-08-13] MEDS: ASPIRIN 325 MG TAB PO SCH (09:42)
[2020-08-13] MEDS: DEXAMETHASONE 4 MG TAB PO SCH (09:42)
[2020-08-13] MEDS: APIXABAN 5 MG TAB PO SCH (09:42)
[2020-08-13] MEDS: ZINC SULFATE 220 MG CAP PO SCH (09:42)
[2020-08-13] MEDS: ASCORBIC ACID 500 MG TAB PO SCH (09:42)
[2020-08-13] MEDS: INSULIN REGULAR, HUMAN 100 UNIT/ML 3ML VIAL SUB-Q SCH ×2 (09:43→13:11)
[2020-08-13] MEDS ORDERED: FUROSEMIDE 20 MG/2 ML INJ IV SCH (10:00)
--- NOTE | 2020-08-13 12:22 | Progress Note ---
Assessment and Plan Severe COVID-19 pneumonia - chest x-ray with diffuse bilateral infiltrates - ID consulted, on dexamethasone and completed remdesivir -s/p ceftriaxone 2 g every day and azithromycin 500 mg every day, completed 5 and 3 days effectively given elevated white count and procalcitonin. - follow daily inflammatory markers, supplemental O2 to keep >94% Severe sepsis - secondary to COVID-19 pneumonia -oxygenation improving slowly. Acute hypoxemic respiratory failure - Likely secondary to COVID-19 infection. - Currently on high flow 3L N/c - pulmonary consulted, cont iv steroid - wean off O2 as tolerated - lasix IV for likely pulmonary edema DM type 2 - consistent carb diet, long acting and SSI Obesity, dietary recommendation when clinically stable DVT Px, per COVID 19 protocol Brief History: 45 year old male with history of DM who tested positive to COVID -19 2 days ago presented with pressure like chest pain associated with cough, fever and shortness of breath. Chest pain is worse with exertion and better with rest. he has been placed on COVID 19 protocol, ID consulted, started on remdesivir and iv dexamethasone. Now on high flow o2, will cont current mx, follow Id recommendation. 08/06: 45 year old male with history of DM who tested positive to COVID -19 2 days ago presented with pressure like chest pain associated with cough, fever and shortness of breath. Chest pain is worse with exertion and better with rest. he has been placed on COVID 19 protocol, ID consulted, started on remdesivir and iv dexamethasone. Now on 4L o2, will cont current mx, follow Id recommendation. 08/07: cont dexamethasone and remdesivir. ordered lasix iv for possible pulmonary edema. repeat BMP tomorrow. 08/08; Patient without any concerns. Spoked with his cousin who is a physician in [facility] [place]. All questions and concerns answered to their satisfaction. Patient remains on high flow O2 at 35%. 08/09: Patient able to wean O2 down to 30% today high flow O2. Feels much better no concerns. monitor daily BMP/ins/os as patient getting lasix. 08/10: patient on 30L O2 today with 40% high flow FiO2. last dose of remdesivir. follow inflammatory markers. 08/11: trended down to 5L n/c today, feels better. if clinically stable possible d/c tomorrow. Assess for home O2 on discharge. 08/12: Patient oxygen saturation drops to 87% on ambulation. He will need home oxygen 3 L with nasal cannula. Inflammatory markers are stable. Completed remdesivir and antibiotics dose. Patient recommended to follow-up with primary care physician in 1 week. Patient will be discharged when home oxygen is arranged. Subjective Date of service: 08/12/20 Principal diagnosis: COVID-19 pneumonia Interval history: Patient seen and examined Now on 2-3L home O2 tolerating diet, c/o cough no chest pain Objective - Exam Narrative Exam: General appearance: Present: no distress - EENT Eyes: Present: PERRL ENT: hearing intact, clear oral mucosa, dentition normal - Neck Neck: Present: supple, normal ROM - Respiratory Respiratory effort: normal - Cardiovascular Rhythm: irregularly irregular Heart Sounds: Present: S1 & S2. Absent: gallop, systolic murmur, diastolic murmur - Extremities Extremities: no ischemia, No edema Peripheral Pulses: within normal limits - Abdominal General gastrointestinal: Present: soft, non-tender, non-distended. Absent: tender, distended, rigid, mass Male genitourinary: Present: deferred - Rectal Rectal Exam: deferred - Integumentary Integumentary: Present: clear, warm, dry - Musculoskeletal Musculoskeletal: strength equal bilaterally - Psychiatric Psychiatric: appropriate mood/affect - Constitutional Vitals: Vital Signs - 12hr 08/13/20 08/13/20 05:23 08:22 Temperature 97.6 F Pulse Rate 67 Respiratory 18 Rate Blood Pressure 104/61 O2 Sat by Pulse 96 96 Oximetry - Labs CBC & Chem 7: 08/08/20 04:25 08/12/20 07:49 Labs: Abnormal lab results 08/12/20 08/12/20 08/12/20 Range/Units 13:56 13:56 16:46 POC Glucose 352 H (70-105) mg/dL Ferritin 1076.0 H (30.0-300.0) ng/mL Lactate Dehydrogenase 223 H (91-180) units/L C-Reactive Protein 1.40 H (0.00-1.30) mg/dL 08/12/20 08/13/20 08/13/20 Range/Units 20:41 07:37 11:10 POC Glucose 298 H 195 H 252 H (70-105) mg/dL Ferritin (30.0-300.0) ng/mL Lactate Dehydrogenase (91-180) units/L C-Reactive Protein (0.00-1.30) mg/dL HEART Score - HEART Score EKG: Normal Age: < 45 Risk factors: No known risk factors Troponin: Troponin T < 0.010 ng/mL (0.00-0.029) 08/06/20 14:08 Troponin: < normal limit - Critical Actions Critical Actions: 0-3 pts:0.9-1.7%risk of adverse cardiac event.Candidate for discharge
--- NOTE | 2020-08-13 12:50 | Progress Note ---
Assessment and Plan Severe COVID-19 pneumonia - chest x-ray with diffuse bilateral infiltrates - ID consulted, on dexamethasone and completed remdesivir -s/p ceftriaxone 2 g every day and azithromycin 500 mg every day, completed 5 and 3 days effectively given elevated white count and procalcitonin. - follow daily inflammatory markers, supplemental O2 to keep >94% Severe sepsis - secondary to COVID-19 pneumonia -oxygenation improving slowly. Acute hypoxemic respiratory failure - Likely secondary to COVID-19 infection. - Currently on high flow 3L N/c - pulmonary consulted, cont iv steroid - wean off O2 as tolerated - lasix IV for likely pulmonary edema DM type 2 - consistent carb diet, long acting and SSI Obesity, dietary recommendation when clinically stable DVT Px, per COVID 19 protocol Brief History: 45 year old male with history of DM who tested positive to COVID -19 2 days ago presented with pressure like chest pain associated with cough, fever and shortness of breath. Chest pain is worse with exertion and better with rest. he has been placed on COVID 19 protocol, ID consulted, started on remdesivir and iv dexamethasone. Now on high flow o2, will cont current mx, follow Id recommendation. 08/06: 45 year old male with history of DM who tested positive to COVID -19 2 days ago presented with pressure like chest pain associated with cough, fever and shortness of breath. Chest pain is worse with exertion and better with rest. he has been placed on COVID 19 protocol, ID consulted, started on remdesivir and iv dexamethasone. Now on 4L o2, will cont current mx, follow Id recommendation. 08/07: cont dexamethasone and remdesivir. ordered lasix iv for possible pulmonary edema. repeat BMP tomorrow. 08/08; Patient without any concerns. Spoked with his cousin who is a physician in [facility]. All questions and concerns answered to their satisfaction. Patient remains on high flow O2 at 35%. 08/09: Patient able to wean O2 down to 30% today high flow O2. Feels much better no concerns. monitor daily BMP/ins/os as patient getting lasix. 08/10: patient on 30L O2 today with 40% high flow FiO2. last dose of remdesivir. follow inflammatory markers. 08/11: trended down to 5L n/c today, feels better. if clinically stable possible d/c tomorrow. Assess for home O2 on discharge. 08/12: Patient oxygen saturation drops to 87% on ambulation. He will need home oxygen 3 L with nasal cannula. Inflammatory markers are stable. Completed remdesivir and antibiotics dose. Patient recommended to follow-up with primary care physician in 1 week. Patient will be discharged when home oxygen is arranged. 08/13: discharge pending on home o2 setup. cont supportive care. Subjective Date of service: 08/13/20 Principal diagnosis: COVID-19 pneumonia Interval history: Patient seen and examined Now on 2-3L home O2 tolerating diet, c/o cough no chest pain discharge pending on home O2 setup Objective - Exam Narrative Exam: General appearance: Present: no distress - EENT Eyes: Present: PERRL ENT: hearing intact, clear oral mucosa, dentition normal - Neck Neck: Present: supple, normal ROM - Respiratory Respiratory effort: normal - Cardiovascular Rhythm: irregularly irregular Heart Sounds: Present: S1 & S2. Absent: gallop, systolic murmur, diastolic murmur - Extremities Extremities: no ischemia, No edema Peripheral Pulses: within normal limits - Abdominal General gastrointestinal: Present: soft, non-tender, non-distended. Absent: tender, distended, rigid, mass Male genitourinary: Present: deferred - Rectal Rectal Exam: deferred - Integumentary Integumentary: Present: clear, warm, dry - Musculoskeletal Musculoskeletal: strength equal bilaterally - Psychiatric Psychiatric: appropriate mood/affect - Constitutional Vitals: Vital Signs - 12hr 08/13/20 08/13/20 05:23 08:22 Temperature 97.6 F Pulse Rate 67 Respiratory 18 Rate Blood Pressure 104/61 O2 Sat by Pulse 96 96 Oximetry - Labs CBC & Chem 7: 08/08/20 04:25 08/12/20 07:49 Labs: Abnormal lab results 08/12/20 08/12/20 08/12/20 Range/Units 13:56 13:56 16:46 POC Glucose 352 H (70-105) mg/dL Ferritin 1076.0 H (30.0-300.0) ng/mL Lactate Dehydrogenase 223 H (91-180) units/L C-Reactive Protein 1.40 H (0.00-1.30) mg/dL 08/12/20 08/13/20 08/13/20 Range/Units 20:41 07:37 11:10 POC Glucose 298 H 195 H 252 H (70-105) mg/dL Ferritin (30.0-300.0) ng/mL Lactate Dehydrogenase (91-180) units/L C-Reactive Protein (0.00-1.30) mg/dL HEART Score - HEART Score EKG: Normal Age: < 45 Risk factors: No known risk factors Troponin: Troponin T < 0.010 ng/mL (0.00-0.029) 08/06/20 14:08 Troponin: < normal limit - Critical Actions Critical Actions: 0-3 pts:0.9-1.7%risk of adverse cardiac event.Candidate for di miguel
[2020-08-13 13:25] VITALS: BP 120/77
[2020-08-13] MEDS ORDERED: INSULIN GLARGINE 100 UNITS/ML SUB-Q SCH (22:00)
[2020-08-14] MEDS ORDERED: FUROSEMIDE 20 MG TAB PO SCH (06:00)
== END 2020-08-13 16:50 | disposition home or self-care (01) | DRG 871 ==
LOC: ED 22:17 → 4A 08-06 02:15 → 3A 08-06 02:42 → OBSVTOIN 08-06 02:50
PROVIDERS: ADMIT Internal Medicine; ATTEND Internal Medicine
PROC: XW033E5 Introduction of Remdesivir Anti-infective into Peripheral Vein, Percutaneous Approach, New Technology Group 5 (ICD-10-PCS; principal; 2020-08-06)
DX: A41.89 Other specified sepsis (principal); U07.1 COVID-19; J12.89 Other viral pneumonia; J96.01 Acute respiratory failure with hypoxia; E11.9 Type 2 diabetes mellitus without complications; R65.20 Severe sepsis without septic shock; E66.9 Obesity, unspecified
CPT/HCPCS: 36415; 71045; 80048; 80053; 81001; 82140; 82550; 82553; 82728; 82947; 82962; 83615; 83930; 84145; 84484; 85007; 85025; 85379; 86140; 87040; 90471; 93005; 94760; G0378; J0456; J0696; J1100; J1644; J1650; J1815; J1940; J7030; J7050; J8540